=== PATIENT | male | born 1970 | race Caucasian/White ===

== ENCOUNTER 2016-05-15 14:52 | Inpatient (IN) | payer OTHER ==
[2016-05-15] MEDS ORDERED: Albuterol/Ipratropium NEB.SOL* Albuterol 2.5 MG/Ipratropium 0.5 MG 3 ML INH ONE (15:33)
[2016-05-15 15:40] LABS: Hematocrit 40 % (42-52); Hemoglobin 12.5 g/dl (14.0-18.0); Mean Corpuscular HGB Conc 31 g/dl (31-36); Mean Corpuscular Hemoglobin 30 pg (27-31); Mean Corpuscular Volume 94 fL (80-94); Mean Platelet Volume 7 um3 (7.4-10.4); Red Blood Count 4.22 10^6/ul (4.0-5.4); Red Cell Distribution Width 22 % (10.5-15); White Blood Count 11.2 10^3/ul (3.5-10.8)
[2016-05-15 15:45] LABS: Add Diff/Slide Review? Slide Review Added; Comments Flag Yes
[2016-05-15 15:58] LABS: ALT 36 U/L (7-52); AST 77 U/L (13-39); Albumin 2.9 g/dL (3.2-5.2); Alkaline Phosphatase 306 U/L (34-104); Anion Gap 7 mmol/L (2-11); BUN/Creatinine Ratio 7.5 (8-20); Blood Urea Nitrogen 3 mg/dL (6-24); C Reactive Protein 16.13 mg/L (< 5.00); CO2 Carbon Dioxide 28 mmol/L (22-32); Calcium 8.6 mg/dL (8.6-10.3); Chloride 95 mmol/L (101-111); Creatine Kinase 69 U/L (10-223); EGFR African American 295.3 (>60); EGFR Non-African American 229.6 (>60); Globulin 3.6 g/dL (2-4); Glucose 99 mg/dL (70-100); Lipase 25 U/L (11.0-82.0); Potassium 4.6 mmol/L (3.5-5.0); Sodium 130 mmol/L (133-145); Total Protein 6.5 g/dL (6.4-8.9)
[2016-05-15 16:01] LABS: Troponin I 0.45 ng/mL (<0.04)
--- NOTE | 2016-05-15 16:03 | RAD ---
HISTORY: Shortness of breath, hypoxia COMPARISONS: February 24, 2016 VIEWS:1: Single frontal portable view of the chest at 3:56 PM FINDINGS: LINES AND TUBES: None. CARDIOMEDIASTINAL SILHOUETTE: The cardiomediastinal silhouette is normal for portable technique. PLEURA: The costophrenic angles are sharp. No pleural abnormalities are noted. LUNG PARENCHYMA: There is patchy alveolar opacification of the infrahilar right lung ABDOMEN: The upper abdomen is clear. There is no subphrenic gas. BONES AND SOFT TISSUES: No bone or soft tissue abnormalities are noted. IMPRESSION: PATCHY CONSOLIDATION OF THE INFRAHILAR RIGHT LUNG. RECOMMEND FOLLOW-UP UNTIL RESOLUTION TO EXCLUDE UNDERLYING PULMONARY PARENCHYMAL PATHOLOGY.
[2016-05-15] MEDS ORDERED: Furosemide IV* 10 MG/ML VIAL (40 MG) IV ONE (16:08)
[2016-05-15] MEDS ORDERED: Aspirin Low Dose CHEW TAB* 81 MG PO ONE (16:08)
[2016-05-15 16:24] LABS: TSH (Thyroid Stimulating Horm) 2.06 mcIU/mL (0.34-5.60)
[2016-05-15 17:02] LABS: Urine Bilirubin Negative (Negative); Urine Glucose Negative (Negative); Urine Nitrite Negative (Negative)
--- NOTE | 2016-05-15 17:11 | ED ---
Chester Yung Janilya, scribed for Faustino Perla MD on 05/15/16 at 1523 . Lower Extremity - HPI Summary HPI Summary: A 46 y/o male came in to [facility] presenting w/ a gradual onset of constant LE pain and edema for about a month. However, the pain has worsened recently. In addition, pt reports SOB, tachycardia. Pt denies fever, chills, CP. No PMHx of CHF, DM, MRSA. PMHx peripheral vascular disease. SHx heavy tobacco and EtOH user. - History of Current Complaint Chief Complaint: EDExtremityLower Stated Complaint: BOTH LEGS AND FEET SWOLLEN Time Seen by Provider: 05/15/16 15:08 Hx Obtained From: Patient Onset/Duration: Still Present Severity Initially: Moderate Severity Currently: Moderate Pain Intensity: 8 Pain Scale Used: 0-10 Numeric Timing: Constant, Lasting Weeks Location: Is Diffuse Character Of Pain: Dull, Aching Associated Signs And Symptoms: Positive: Swelling, Redness. Negative: Fever Aggravating Factor(s): Nothing Alleviating Factor(s): Nothing - Allergies/Home Medications Allergies/Adverse Reactions: Allergies Allergy/AdvReac Type Severity Reaction Status Date / Time Latex Allergy Unknown Verified 02/25/16 12:45 Reaction Details Home Medications: Home Medications Aspirin EC Low Dose* [Ecotrin EC Low Dose*] 81 mg PO DAILY 05/15/16 [History Confirmed 05/15/16] Atorvastatin* [Lipitor*] 80 mg PO DAILY 05/15/16 [History Confirmed 05/15/16] PMH/Surg Hx/FS Hx/Imm Hx Cardiovascular History: Reports: Hx Coronary Artery Disease, Hx Hypertension, Other Cardiovascular Problems/Disorders - Peripheral artery disease, cardiomyopathy (s/t HTN), aortic root dialation Denies: Hx Pacemaker/ICD Respiratory History: Reports: Hx Chronic Obstructive Pulmonary Disease (COPD), Other Respiratory Problems/Disorders - centrilobular emphysema Sensory History: Denies: Hx Hearing Aid Psychiatric History: Reports: Hx Substance Abuse Denies: Hx Panic Disorder Comment Only: Other Psychiatric Issues/Disorders - pt denies - Surgical History Surgery Procedure, Year, and Place: TONSILECTOMY. APPENDECTOMY Infectious Disease History: No Infectious Disease History: Denies: Hx of Known/Suspected MRSA, History Other Infectious Disease, Traveled Outside the [place] in Last 30 Days - Family History Known Family History: Positive: Unknown - pt is too confused to answer this question, Cardiac Disease - [place] - grandfather, Diabetes - Social History Alcohol Use: Daily Alcohol Amount: 8 beers day Substance Use Type: Reports: None Substance Use Comment - Amount & Last Used: 6 to 8 beers daily Smoking Status (MU): Heavy Every Day Tobacco Smoker Type: Cigarettes Amount Used/How Often: 1 ppd Review of Systems Negative: Fever, Chills Positive: Other - tachycardia . Negative: Chest Pain Positive: Shortness Of Breath Positive: Arthralgia - LE pain , Myalgia - LE pain, Edema All Other Systems Reviewed And Are Negative: Yes Physical Exam Triage Information Reviewed: Yes Vital Signs On Initial Exam: Initial Vitals Temp Pulse Resp BP Pulse Ox 98.2 F 128 20 111/74 85 05/15/16 14:55 05/15/16 14:55 05/15/16 14:55 05/15/16 14:55 05/15/16 14:55 Vital Signs Reviewed: Yes Appearance: Positive: Well-Appearing, No Pain Distress Skin: Positive: Warm, Skin Color Reflects Adequate Perfusion, Dry Head/Face: Positive: Normal Head/Face Inspection Eyes: Positive: EOMI, KELTON, Other: - Conjuctival exudates bilaterally ENT: Positive: Normal ENT inspection Neck: Positive: Supple, Nontender Respiratory/Lung Sounds: Positive: Breath Sounds Present, Rhonchi - bilaterally Cardiovascular: Positive: RRR Abdomen Description: Positive: Nontender, Soft Bowel Sounds: Positive: Present Musculoskeletal: Positive: Strength/ROM Intact, Edema Left, Edema Right Neurological: Positive: Normal, Sensory/Motor Intact, Alert, Oriented to Person Place, Time Psychiatric: Positive: Affect/Mood Appropriate Diagnostics - Vital Signs Vital Signs Temp Pulse Resp BP Pulse Ox 05/15/16 14:55 98.2 F 128 20 111/74 85 - Laboratory Lab Results: Lab Results 05/15/16 05/15/16 05/15/16 Range/Units 15:27 15:27 15:27 WBC 11.2 H (3.5-10.8) 10^3/ul RBC 4.22 (4.0-5.4) 10^6/ul Hgb 12.5 L (14.0-18.0) g/dl Hct 40 L (42-52) % MCV 94 (80-94) fL MCH 30 (27-31) pg MCHC 31 (31-36) g/dl RDW 22 H (10.5-15) % Plt Count 240 (150-450) 10^3/ul MPV 7 L (7.4-10.4) um3 Neut % (Auto) 85.8 H (38-83) % Lymph % (Auto) 5.5 L (25-47) % [place] % (Auto) 8.5 (1-9) % Eos % (Auto) 0 (0-6) % Baso % (Auto) 0.2 (0-2) % Absolute Neuts (auto) 9.6 H (1.5-7.7) 10^3/ul Absolute Lymphs (auto) 0.6 L (1.0-4.8) 10^3/ul Absolute Monos (auto) 1.0 H (0-0.8) 10^3/ul Absolute Eos (auto) 0 (0-0.6) 10^3/ul Absolute Basos (auto) 0 (0-0.2) 10^3/ul Absolute Nucleated RBC 0.18 10^3/ul Nucleated RBC % 1.6 INR (Anticoag Therapy) 1.06 (0.89-1.11) APTT 30.7 (26.0-36.3) seconds D-Dimer, Quantitative 301 H (Less Than 230) ng/mL Sodium 130 L (133-145) mmol/L Potassium 4.6 (3.5-5.0) mmol/L Chloride 95 L (101-111) mmol/L Carbon Dioxide 28 (22-32) mmol/L Anion Gap 7 (2-11) mmol/L BUN 3 L (6-24) mg/dL Creatinine 0.40 L (0.67-1.17) mg/dL Est GFR ( Amer) 295.3 (>60) Est GFR (Non-Af Amer) 229.6 (>60) BUN/Creatinine Ratio 7.5 L (8-20) Glucose 99 (70-100) mg/dL Lactic Acid (0.5-2.0) mmol/L Calcium 8.6 (8.6-10.3) mg/dL Magnesium 2.0 (1.9-2.7) mg/dL Total Bilirubin 2.00 H (0.2-1.0) mg/dL AST 77 H (13-39) U/L ALT 36 (7-52) U/L Alkaline Phosphatase 306 H (34-104) U/L Total Creatine Kinase 69 (10-223) U/L CK-MB (CK-2) 5.4 (0.6-6.3) ng/mL Troponin I 0.45 H* (<0.04) ng/mL C-Reactive Protein 16.13 H (< 5.00) mg/L B-Natriuretic Peptide ( - 100) pg/mL Total Protein 6.5 (6.4-8.9) g/dL Albumin 2.9 L (3.2-5.2) g/dL Globulin 3.6 (2-4) g/dL Albumin/Globulin Ratio 0.8 L (1-3) Lipase 25 (11.0-82.0) U/L TSH 2.06 (0.34-5.60) mcIU/mL Urine Color Urine Appearance Urine pH (5-9) Ur Specific [place] (1.010-1.030) Urine Protein (Negative) Urine Ketones (Negative) Urine Blood (Negative) Urine Nitrate (Negative) Urine Bilirubin (Negative) Urine Urobilinogen (Negative) Ur Leukocyte Esterase (Negative) Urine Glucose (Negative) Influenza A (Rapid) (Negative) Influenza B (Rapid) (Negative) 05/15/16 05/15/16 05/15/16 Range/Units 15:27 15:27 16:35 WBC (3.5-10.8) 10^3/ul RBC (4.0-5.4) 10^6/ul Hgb (14.0-18.0) g/dl Hct (42-52) % MCV (80-94) fL MCH (27-31) pg MCHC (31-36) g/dl RDW (10.5-15) % Plt Count (150-450) 10^3/ul MPV (7.4-10.4) um3 Neut % (Auto) (38-83) % Lymph % (Auto) (25-47) % [place] % (Auto) (1-9) % Eos % (Auto) (0-6) % Baso % (Auto) (0-2) % Absolute Neuts (auto) (1.5-7.7) 10^3/ul Absolute Lymphs (auto) (1.0-4.8) 10^3/ul Absolute Monos (auto) (0-0.8) 10^3/ul Absolute Eos (auto) (0-0.6) 10^3/ul Absolute Basos (auto) (0-0.2) 10^3/ul Absolute Nucleated RBC 10^3/ul Nucleated RBC % INR (Anticoag Therapy) (0.89-1.11) APTT (26.0-36.3) seconds D-Dimer, Quantitative (Less Than 230) ng/mL Sodium (133-145) mmol/L Potassium (3.5-5.0) mmol/L Chloride (101-111) mmol/L Carbon Dioxide (22-32) mmol/L Anion Gap (2-11) mmol/L BUN (6-24) mg/dL Creatinine (0.67-1.17) mg/dL Est GFR ( Amer) (>60) Est GFR (Non-Af Amer) (>60) BUN/Creatinine Ratio (8-20) Glucose (70-100) mg/dL Lactic Acid 1.8 (0.5-2.0) mmol/L Calcium (8.6-10.3) mg/dL Magnesium (1.9-2.7) mg/dL Total Bilirubin (0.2-1.0) mg/dL AST (13-39) U/L ALT (7-52) U/L Alkaline Phosphatase (34-104) U/L Total Creatine Kinase (10-223) U/L CK-MB (CK-2) (0.6-6.3) ng/mL Troponin I (<0.04) ng/mL C-Reactive Protein (< 5.00) mg/L B-Natriuretic Peptide 1306 H ( - 100) pg/mL Total Protein (6.4-8.9) g/dL Albumin (3.2-5.2) g/dL Globulin (2-4) g/dL Albumin/Globulin Ratio (1-3) Lipase (11.0-82.0) U/L TSH (0.34-5.60) mcIU/mL Urine Color Urine Appearance Urine pH (5-9) Ur Specific [place] (1.010-1.030) Urine Protein (Negative) Urine Ketones (Negative) Urine Blood (Negative) Urine Nitrate (Negative) Urine Bilirubin (Negative) Urine Urobilinogen (Negative) Ur Leukocyte Esterase (Negative) Urine Glucose (Negative) Influenza A (Rapid) Negative (Negative) Influenza B (Rapid) Negative (Negative) 05/15/16 Range/Units 16:49 WBC (3.5-10.8) 10^3/ul RBC (4.0-5.4) 10^6/ul Hgb (14.0-18.0) g/dl Hct (42-52) % MCV (80-94) fL MCH (27-31) pg MCHC (31-36) g/dl RDW (10.5-15) % Plt Count (150-450) 10^3/ul MPV (7.4-10.4) um3 Neut % (Auto) (38-83) % Lymph % (Auto) (25-47) % [place] % (Auto) (1-9) % Eos % (Auto) (0-6) % Baso % (Auto) (0-2) % Absolute Neuts (auto) (1.5-7.7) 10^3/ul Absolute Lymphs (auto) (1.0-4.8) 10^3/ul Absolute Monos (auto) (0-0.8) 10^3/ul Absolute Eos (auto) (0-0.6) 10^3/ul Absolute Basos (auto) (0-0.2) 10^3/ul Absolute Nucleated RBC 10^3/ul Nucleated RBC % INR (Anticoag Therapy) (0.89-1.11) APTT (26.0-36.3) seconds D-Dimer, Quantitative (Less Than 230) ng/mL Sodium (133-145) mmol/L Potassium (3.5-5.0) mmol/L Chloride (101-111) mmol/L Carbon Dioxide (22-32) mmol/L Anion Gap (2-11) mmol/L BUN (6-24) mg/dL Creatinine (0.67-1.17) mg/dL Est GFR ( Amer) (>60) Est GFR (Non-Af Amer) (>60) BUN/Creatinine Ratio (8-20) Glucose (70-100) mg/dL Lactic Acid (0.5-2.0) mmol/L Calcium (8.6-10.3) mg/dL Magnesium (1.9-2.7) mg/dL Total Bilirubin (0.2-1.0) mg/dL AST (13-39) U/L ALT (7-52) U/L Alkaline Phosphatase (34-104) U/L Total Creatine Kinase (10-223) U/L CK-MB (CK-2) (0.6-6.3) ng/mL Troponin I (<0.04) ng/mL C-Reactive Protein (< 5.00) mg/L B-Natriuretic Peptide ( - 100) pg/mL Total Protein (6.4-8.9) g/dL Albumin (3.2-5.2) g/dL Globulin (2-4) g/dL Albumin/Globulin Ratio (1-3) Lipase (11.0-82.0) U/L TSH (0.34-5.60) mcIU/mL Urine Color Straw Urine Appearance Clear Urine pH 5.0 (5-9) Ur Specific [place] 1.003 L (1.010-1.030) Urine Protein Negative (Negative) Urine Ketones Negative (Negative) Urine Blood Negative (Negative) Urine Nitrate Negative (Negative) Urine Bilirubin Negative (Negative) Urine Urobilinogen Negative (Negative) Ur Leukocyte Esterase Negative (Negative) Urine Glucose Negative (Negative) Influenza A (Rapid) (Negative) Influenza B (Rapid) (Negative) Result Diagrams: 05/15/16 15:27 05/15/16 15:27 Lab Statement: Any lab studies that have been ordered have been reviewed, and results considered in the medical decision making process. - Radiology CXR Xray Interpretation: Positive (See Comments) - IMPRESSION: PATCHY CONSOLIDATION OF THE INFRAHILAR RIGHT LUNG. RECOMMEND FOLLOW-UP UNTIL RESOLUTION TO EXCLUDE UNDERLYING PULMONARY PARENCHYMAL PATHOLOGY. Radiology Interpretation Completed By: Radiologist - EKG 1506 Cardiac Rate: Tachycardia EKG Rhythm: Sinus Tachycardia Ectopy: None EKG Interpretation: RBBB, left atrial enlargement Lower Extremity Course/Dx - Course Assessment/Plan: GIVEN ASA AND LASIX IN ED. ADMIT HOSPITALIST STABLE. - Diagnoses Provider Diagnoses: Hypoxia, CHF (congestive heart failure) - Physician Notifications Discussed Care of Patient With: Dr. Amato (hospitalist) at 1635: agrees to admit pt. Discharge - Discharge Plan Condition: Stable Disposition: ADMITTED TO [facility] Referrals: Ritesh Tsai MD [Primary Care Provider] - The documentation as recorded by the Chester palomo Janilya accurately reflects the service I personally performed and the decisions made by me, Faustino Perla MD.
[2016-05-15] MEDS ORDERED: Ondansetron INJ* 2 MG/ML VIAL IV PRN (17:20)
[2016-05-15] MEDS ORDERED: Thiamine IV* 100 MG/ML 2 ML VIAL IM ONE (17:50)
[2016-05-15] MEDS ORDERED: Enoxaparin(*) 40 MG/0.4 ML SYR SUBCUT SCH (18:00)
[2016-05-15] MEDS: LORazepam TAB(*) 1 MG PO SCH ×2 (18:11→23:09)
[2016-05-15] MEDS ORDERED: Iohexol 350* (CONTRAST) 500 ML MDV IV ONE (18:13)
[2016-05-15 18:16] LABS: Alcohol < 10 mg/dL (<10)
[2016-05-15] MEDS: Lisinopril TAB* 5 MG PO SCH (18:16)
--- NOTE | 2016-05-15 18:53 | RAD ---
INDICATION: Chest pain. Short of breath. Evaluate for pulmonary embolus. COMPARISON: Chest x-ray 05/15/2016 TECHNIQUE: Axial source images were obtained from the thoracic inlet to the hemidiaphragms following administration of [address] angiographic technique was utilized. Coronal and sagittal reconstructed images were acquired. CHEST FINDINGS: Neck/thyroid: The visualized neck to include the thyroid appear normal. Chest wall: There are no acute abnormalities of the bony thorax or chest wall. There is no supraclavicular, infraclavicular, or axillary lymphadenopathy. Lungs : There are no pulmonary parenchymal masses or infiltrates. There is mild coarsening of interstitium. There are no endobronchial lesions. Cardiomediastinal structures: There is no CT evidence of acute pulmonary embolic disease. The heart is normal in size. There is no pericardial effusion. There is no evidence of aortic aneurysm or dissection. There is no mediastinal or hilar adenopathy. The esophagus appears normal. Pleura : There are no pleural-based masses or effusions. Other: None. IMPRESSION: NO CT EVIDENCE OF ACUTE PULMONARY EMBOLIC DISEASE
--- NOTE | 2016-05-15 19:18 | HP ---
ADMISSION HISTORY AND PHYSICAL: DATE OF ADMISSION: 05/15/16 PRIMARY CARE PROVIDER: Dr. Tsai. ADMITTING PROVIDER: NICOLE Holt. SUPERVISING PHYSICIAN: Evie Amato DO.* (DICTATED BY NICOLE HOLT) CHIEF COMPLAINT: Lower extremity edema, erythema, and pain. HISTORY OF PRESENT ILLNESS: This is a 46-year-old gentleman with a known cardiomyopathy, last ejection fraction measured at 35% to 40% likely due to alcoholism as well as hypertension, prior CVA, and severe peripheral vascular disease who presented with a chief complaint of bilateral lower extremity edema , erythema, and pain. Symptoms started several weeks ago and had been slowly increasing. His mother finally talked him into coming to the emergency department for evaluation. The patient denies associated chest pain or shortness of breath. He has not been ill. Denies any nausea or vomiting, but does have some occasional diarrhea which he attributes to his regular alcohol consumption. The patient was admitted in February for altered mental status. This was thought to possibly represent a TIA. An old CVA was discovered at that time, but no new infarct. The patient's cardiomyopathy was also noted at that time. Again, his ejection fraction was noted to be 35% to 40% with a global hypokinesis which would be more consistent with an alcoholic cardiomyopathy. The patient was prescribed appropriate medications including lisinopril, aspirin , a statin as well as thiamine and folic acid which the patient has been completely noncompliant with. It sounds like maybe he followed up with his primary care provider after his hospital stay, but he has not followed through on continuing any of his prescribed medications with the exception of a daily aspirin. The patient's mother states that he has also been more confused over the last several days. His appetite has also been poor. No other acute findings. No recent illness or fever. When the patient reached the emergency department, he was noted to be hypoxic with oxygen saturations in the mid 80s as well as tachycardic with a heart rate of 125 beats per minute. The patient was placed on high flow oxygen, given 40 mg of IV Lasix, aspirin, and a DuoNeb. He remains on high flow oxygen at this time, but is satting near 100%. PAST MEDICAL HISTORY: 1. Chronic alcoholism without history of seizure. 2. Hypertension. 3. CVA. 4. Cardiomyopathy likely alcohol induced with an ejection fraction of 35% to 40 %. 5. Peripheral vascular disease. PAST SURGICAL HISTORY: 1. Tonsillectomy. 2. Appendectomy. HOME MEDICATIONS: Aspirin 81 mg daily. SOCIAL HISTORY: The patient lives at home with his mother. He is a heavy beer drinker, consumes 8 to 12 beers per day and smokes 1 pack of cigarettes daily with a [id number] smoking history. The patient is unemployed and receives social security income for disability. REVIEW OF SYSTEMS: As noted above in HPI, otherwise negative. PHYSICAL EXAMINATION GENERAL: This is a 46-year-old gentleman who appears much older than stated age and participates in a limited fashion in his history. He is accompanied by his mother that helps to clarify. He is in no acute distress with oxygen mask on. VITAL SIGNS: Initial temperature of 98.2 degrees Fahrenheit, pulse 128 beats per minute, respiratory rate 20 per minute, oxygen saturation 85% on room air, and blood pressure 111/74 mmHg. Most recent vitals show improvement of pulse to 116 beats per minute, blood pressure is 104/61 mmHg. HEENT: Head is normocephalic, atraumatic. Mucous membranes pink and moist. NECK: Supple, free of lymphadenopathy without JVD appreciated. RESPIRATORY: The patient has diffuse rhonchi noted. No crackles or wheezes. CARDIOVASCULAR: Heart has a regular rate and rhythm without murmurs, rubs, or gallops. ABDOMEN: Soft and nontender to palpation. Mildly protuberant. EXTREMITIES: The patient has 3+ lower extremity pitting edema with some mild erythema accompanying. No drainage noted. PSYCH: The patient is alert and appropriately oriented. NEURO: The patient is noted to be mildly tremulous with activity. LABORATORY EVALUATION: CBC shows a white blood cell count of 11,200, hemoglobin 12.5 g/dL, and platelet count of 240,000. INR is normal at 1.06. PTT is also normal at 30. D-dimer is mildly elevated at 301, however. Comprehensive metabolic panel is significant for sodium of 130 mmol/L, potassium normal at 4.6 mmol/L, BUN of 3, creatinine 0.4, and estimated GFR of 229. Magnesium normal at 2.0. Normal lactic acid, 1.8. Total bilirubin elevated at 2.0 with an elevated AST at 77, ALT normal at 36, and alk phos elevated at 306. Troponin elevated at 0.45. CRP mildly elevated at 16.3. BNP significantly elevated at 1306. TSH normal at 2.06. Urinalysis is unremarkable. Influenza screening is negative. IMAGING: EKG shows right bundle branch block which appears to be new when compared to prior at a rate of about 135 beats per minute, underlying rhythm is sinus. Chest x-ray shows mild pulmonary venous congestion and what is described as a patchy right hilar consolidation. ASSESSMENT AND PLAN: This is a 46-year-old alcoholic with an alcohol-induced cardiomyopathy, peripheral vascular disease, prior cerebrovascular accident, and hypertension who presents to the emergency department with insidious onset of lower extremity edema, erythema, and pain. The patient is noted to have an elevated troponin and BNP. He is being admitted to the hospital for heart failure. 1. Acute exacerbation of chronic systolic heart failure secondary to alcohol- induced cardiomyopathy - the patient received IV Lasix in the emergency department. He will continue with daily IV Lasix with strict I's and O's, low- salt diet, and daily weights. Plan to repeat echocardiogram. Also consider possibility of a PE due to his hypoxia, tachycardia, and profound lower extremity edema without significant pulmonary edema in addition to his D-dimer. A CTA is pending at this time. 2. Elevated troponin - likely demand induced secondary to his heart failure exacerbation. Again, consider possibility of a pulmonary embolism. Acute coronary syndrome is unlikely without ischemic changes on EKG or chest pain. We will trend troponin; however, we will not anticoagulate at this time, but restart his low-dose EZ inhibitor. Continue aspirin and restart his statin. 3. Confusion - the patient's mother notes that he has been more confused and lethargic lately. Consider the possibility of hepatic encephalopathy. We will check an ammonia level. 4. Alcoholism - the patient shows signs of mild alcohol withdrawal and states that his last drink was approximately 24 hours ago. We will initiate a WA protocol. No history of seizures with prior withdrawal. 5. History of elevated hemoglobin A1c: Hemoglobin A1c during last admission was 6.2%. His random glucose on admission was 99. We will plan to repeat hemoglobin A1c and if elevated, we will initiate glucose monitoring during his hospital stay. 6. Hypertension - reinitiate lisinopril. 7. Peripheral vascular disease - continue statin and aspirin. 8. History of cerebrovascular accident - continue statin and aspirin. 9. Code status - the patient is full code. 10. Healthcare proxy is his mother. 11. DVT prophylaxis - the patient is a moderate to high risk for DVT and will be initiated on 40 mg of subcu Lovenox daily. DISPOSITION: The patient is being admitted to the hospital with an anticipated length of stay of greater than 2 days with a diagnosis of heart failure exacerbation. NICOLE HOLT CC: Dr. Tsai * [id number]/CPS #: [id number] MTDD
[2016-05-15] MEDS ORDERED: Heparin DRIP 25,000 UNITS(*) 25,000 UNITS/500 ML BAG IV SCH (22:15)
[2016-05-15] MEDS ORDERED: Heparin VIAL(*) 5000 UNITS/ML VIAL (FIVE THOUSAND) IV SCH (23:00)
[2016-05-16] MEDS: LORazepam TAB(*) 1 MG PO SCH ×4 (01:18→10:09)
[2016-05-16 06:30] LABS: Hematocrit 38 % (42-52); Hemoglobin 11.6 g/dl (14.0-18.0); Mean Corpuscular HGB Conc 31 g/dl (31-36); Mean Corpuscular Hemoglobin 29 pg (27-31); Mean Corpuscular Volume 95 fL (80-94); Mean Platelet Volume 8 um3 (7.4-10.4); Red Blood Count 3.97 10^6/ul (4.0-5.4); Red Cell Distribution Width 23 % (10.5-15); White Blood Count 10.9 10^3/ul (3.5-10.8)
[2016-05-16 06:31] LABS: Comments Flag Yes
[2016-05-16 06:36] LABS: Ammonia 75 mol/L (16-53)
[2016-05-16 06:37] LABS: Albumin 2.5 g/dL (3.2-5.2); BUN/Creatinine Ratio 9.3 (8-20); Calcium 8.3 mg/dL (8.6-10.3); EGFR African American 271.6 (>60); EGFR Non-African American 211.2 (>60); Globulin 3.2 g/dL (2-4); HDL Cholesterol 23.8 mg/dL; Potassium 3.3 mmol/L (3.5-5.0); Total Bilirubin 1.8 mg/dL (0.2-1.0); Total Protein 5.7 g/dL (6.4-8.9)
[2016-05-16 06:40] LABS: Troponin I 0.68 ng/mL (<0.04)
[2016-05-16 06:42] LABS: B Type Natriuretic Peptide 2207 pg/mL
[2016-05-16] MEDS ORDERED: Furosemide IV* 10 MG/ML VIAL (40 MG) IV SLOW PU ONE (06:42)
--- NOTE | 2016-05-16 08:06 | RAD ---
INDICATION: Shortness of breath. COMPARISON: Chest x-ray dated 05/15/2016 TECHNIQUE: Single AP portable view of the chest was obtained. FINDINGS: Image quality is compromised due to the relative inferiority of a portable chest x-ray. Similar the previous chest x-ray there is moderate cardiomegaly. There is fullness symmetrically of the bilateral yolanda with densities overlying the central lungs. More peripherally the lungs are adequately clear. There is bibasilar costophrenic angle blunting. Visualized bones are normal for the patient's age. IMPRESSION: Chest x-ray findings are most compatible with cardiogenic pulmonary edema slightly progressed when compared to the previous day's chest x-ray.
[2016-05-16] MEDS ORDERED: Thiamine TAB* 100 MG TAB PO SCH (09:00)
--- NOTE | 2016-05-16 09:23 | PN ---
Subjective Date of Service: 05/16/16 Interval History: 1100: patient examined at the bedside - per nursing staff he is much more awake now as he was very lethargic. He is answering some questions but not others - some noted confusion. follows commands. Reports he drinks 8-12 beers a day. Denies any tremors, hallucination. No hx of seizure in the past. He reports he feels better than on admission with less swelling. Denies chest pain or sob. no recent fever or chills. Denies abdominal pain, N/V/D. 1300: Patient re-evaluated at the bedside with Dr. Gamboa and decision was made to transfer to ICU due to lethargy and increasing oxygen requirements. Pts is hemodynamically stable, awake to voice but appears confused. Plan to obtain ABG. Objective Active Medications: Acetaminophen (Tylenol Tab*) 650 mg PO Q4H PRN PRN Reason: FEVER/PAIN Aspirin (Aspirin Ec Low Dose*) 81 mg PO DAILY PRATIMA Atorvastatin Calcium (Lipitor*) 40 mg PO 1700 PRATIMA Folic Acid (Folvite Tab*) 1 mg PO DAILY PRATIMA Furosemide (Lasix Iv*) 40 mg IV DAILY PRATIMA Heparin Sodium (Porcine) (Heparin Vial(*)) 0 units IV .PER PROTOCOL PRATIMA PRN Reason: Protocol Heparin Sodium/Dextrose (Heparin Drip 25,000 Units(*)) 25,000 units in 500 mls @ 0 mls/hr IV .NO INITIAL BOLUS PRATIMA; As Directed PRN Reason: Protocol Last Admin: 05/16/16 00:05 Dose: 22 mls/hr Lisinopril (Prinivil Tab*) 5 mg PO DAILY PRATIMA Last Admin: 05/15/16 18:16 Dose: Not Given Lorazepam (Ativan Tab(*)) 0 mg PO .PER WAM SCORE PRATIMA PRN Reason: Protocol Last Admin: 05/16/16 05:48 Dose: 1 mg Multivitamins/Minerals (Theragran/Minerals Tab*) 1 tab PO DAILY PRATIMA Ondansetron HCl (Zofran Inj*) 4 mg IV Q4H PRN PRN Reason: NAUSEA/VOMITING Thiamine HCl (Vitamin B-1 Tab*) 100 mg PO DAILY PRATIMA Vital Signs 05/15/16 05/15/16 05/15/16 17:30 17:50 18:00 Temperature Pulse Rate 119 116 Respiratory 17 19 Rate Blood Pressure 108/55 104/61 (mmHg) O2 Sat by Pulse 96 99 Oximetry 05/15/16 05/15/16 05/15/16 18:11 18:21 19:40 Temperature 98.6 F Pulse Rate 129 129 Respiratory 17 17 18 Rate Blood Pressure 104/61 129/92 (mmHg) O2 Sat by Pulse 95 Oximetry 05/15/16 05/15/16 05/15/16 19:44 20:00 20:11 Temperature Pulse Rate Respiratory 18 16 18 Rate Blood Pressure (mmHg) O2 Sat by Pulse Oximetry 05/15/16 05/15/16 05/15/16 21:44 23:09 23:35 Temperature 100.6 F 98.2 F Pulse Rate 120 122 Respiratory 19 16 20 Rate Blood Pressure 121/60 123/71 (mmHg) O2 Sat by Pulse 95 95 Oximetry 05/16/16 05/16/16 05/16/16 01:09 01:18 02:02 Temperature Pulse Rate 114 Respiratory 18 18 16 Rate Blood Pressure 109/71 (mmHg) O2 Sat by Pulse 93 Oximetry 05/16/16 05/16/16 05/16/16 03:18 03:20 03:38 Temperature 99.4 F Pulse Rate 125 Respiratory 16 16 20 Rate Blood Pressure 110/64 (mmHg) O2 Sat by Pulse 86 Oximetry 05/16/16 05/16/16 05/16/16 03:50 05:20 05:40 Temperature Pulse Rate 123 Respiratory 18 20 Rate Blood Pressure 112/68 (mmHg) O2 Sat by Pulse 91 98 Oximetry 05/16/16 05:48 Temperature Pulse Rate Respiratory 18 Rate Blood Pressure (mmHg) O2 Sat by Pulse Oximetry Oxygen Devices in Use Now: Nasal Cannula - 8L NC Appearance: appears encepalopathic, appears to have muscle wasting - alert to self - thinks he is at [facility]. Eyes: No Scleral Icterus, PERRLA Ears/Nose/Mouth/Throat: NL Teeth, Lips, Gums, Mucous Membranes Moist Neck: NL Appearance and Movements; NL JVP, Trachea Midline Respiratory: Symmetrical Chest Expansion and Respiratory Effort, - - diminished bilaterally Cardiovascular: NL Sounds; No Murmurs; No JVD, RRR, - - trace LE edema b/l Abdominal: NL Sounds; No Tenderness; No Distention Lymphatic: No Cervical Adenopathy Extremities: No Clubbing, Cyanosis Skin: No Rash or Ulcers Neurological: - - alert to self, confused. 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 Lines/Tubes/Other Access: Clean, Dry and Intact Peripheral IV Nutrition: Taking PO's Result Diagrams: 05/16/16 06:07 05/16/16 06:07 Additional Lab and Data: Lab Results 05/15/16 05/15/16 05/15/16 Range/Units 15:27 15:27 15:27 WBC 11.2 H (3.5-10.8) 10^3/ul RBC 4.22 (4.0-5.4) 10^6/ul Hgb 12.5 L (14.0-18.0) g/dl Hct 40 L (42-52) % MCV 94 (80-94) fL MCH 30 (27-31) pg MCHC 31 (31-36) g/dl RDW 22 H (10.5-15) % Plt Count 240 (150-450) 10^3/ul MPV 7 L (7.4-10.4) um3 Neut % (Auto) 85.8 H (38-83) % Lymph % (Auto) 5.5 L (25-47) % Travis % (Auto) 8.5 (1-9) % Eos % (Auto) 0 (0-6) % Baso % (Auto) 0.2 (0-2) % Absolute Neuts (auto) 9.6 H (1.5-7.7) 10^3/ul Absolute Lymphs (auto) 0.6 L (1.0-4.8) 10^3/ul Absolute Monos (auto) 1.0 H (0-0.8) 10^3/ul Absolute Eos (auto) 0 (0-0.6) 10^3/ul Absolute Basos (auto) 0 (0-0.2) 10^3/ul Absolute Nucleated RBC 0.18 10^3/ul Nucleated RBC % 1.6 INR (Anticoag Therapy) 1.06 (0.89-1.11) APTT 30.7 (26.0-36.3) seconds D-Dimer, Quantitative 301 H (Less Than 230) ng/mL Sodium 130 L (133-145) mmol/L Potassium 4.6 (3.5-5.0) mmol/L Chloride 95 L (101-111) mmol/L Carbon Dioxide 28 (22-32) mmol/L Anion Gap 7 (2-11) mmol/L BUN 3 L (6-24) mg/dL Creatinine 0.40 L (0.67-1.17) mg/dL Est GFR ( Amer) 295.3 (>60) Est GFR (Non-Af Amer) 229.6 (>60) BUN/Creatinine Ratio 7.5 L (8-20) Glucose 99 (70-100) mg/dL Lactic Acid (0.5-2.0) mmol/L Calcium 8.6 (8.6-10.3) mg/dL Magnesium 2.0 (1.9-2.7) mg/dL Total Bilirubin 2.00 H (0.2-1.0) mg/dL AST 77 H (13-39) U/L ALT 36 (7-52) U/L Alkaline Phosphatase 306 H (34-104) U/L Total Creatine Kinase 69 (10-223) U/L CK-MB (CK-2) 5.4 (0.6-6.3) ng/mL Troponin I 0.45 H* (<0.04) ng/mL C-Reactive Protein 16.13 H (< 5.00) mg/L B-Natriuretic Peptide ( - 100) pg/mL Total Protein 6.5 (6.4-8.9) g/dL Albumin 2.9 L (3.2-5.2) g/dL Globulin 3.6 (2-4) g/dL Albumin/Globulin Ratio 0.8 L (1-3) Lipase 25 (11.0-82.0) U/L TSH 2.06 (0.34-5.60) mcIU/mL Urine Color Urine Appearance Urine pH (5-9) Ur Specific Meadow (1.010-1.030) Urine Protein (Negative) Urine Ketones (Negative) Urine Blood (Negative) Urine Nitrate (Negative) Urine Bilirubin (Negative) Urine Urobilinogen (Negative) Ur Leukocyte Esterase (Negative) Urine Glucose (Negative) Influenza A (Rapid) (Negative) Influenza B (Rapid) (Negative) 05/15/16 05/15/16 05/15/16 Range/Units 15:27 15:27 16:35 WBC (3.5-10.8) 10^3/ul RBC (4.0-5.4) 10^6/ul Hgb (14.0-18.0) g/dl Hct (42-52) % MCV (80-94) fL MCH (27-31) pg MCHC (31-36) g/dl RDW (10.5-15) % Plt Count (150-450) 10^3/ul MPV (7.4-10.4) um3 Neut % (Auto) (38-83) % Lymph % (Auto) (25-47) % Travis % (Auto) (1-9) % Eos % (Auto) (0-6) % Baso % (Auto) (0-2) % Absolute Neuts (auto) (1.5-7.7) 10^3/ul Absolute Lymphs (auto) (1.0-4.8) 10^3/ul Absolute Monos (auto) (0-0.8) 10^3/ul Absolute Eos (auto) (0-0.6) 10^3/ul Absolute Basos (auto) (0-0.2) 10^3/ul Absolute Nucleated RBC 10^3/ul Nucleated RBC % INR (Anticoag Therapy) (0.89-1.11) APTT (26.0-36.3) seconds D-Dimer, Quantitative (Less Than 230) ng/mL Sodium (133-145) mmol/L Potassium (3.5-5.0) mmol/L Chloride (101-111) mmol/L Carbon Dioxide (22-32) mmol/L Anion Gap (2-11) mmol/L BUN (6-24) mg/dL Creatinine (0.67-1.17) mg/dL Est GFR ( Amer) (>60) Est GFR (Non-Af Amer) (>60) BUN/Creatinine Ratio (8-20) Glucose (70-100) mg/dL Lactic Acid 1.8 (0.5-2.0) mmol/L Calcium (8.6-10.3) mg/dL Magnesium (1.9-2.7) mg/dL Total Bilirubin (0.2-1.0) mg/dL AST (13-39) U/L ALT (7-52) U/L Alkaline Phosphatase (34-104) U/L Total Creatine Kinase (10-223) U/L CK-MB (CK-2) (0.6-6.3) ng/mL Troponin I (<0.04) ng/mL C-Reactive Protein (< 5.00) mg/L B-Natriuretic Peptide 1306 H ( - 100) pg/mL Total Protein (6.4-8.9) g/dL Albumin (3.2-5.2) g/dL Globulin (2-4) g/dL Albumin/Globulin Ratio (1-3) Lipase (11.0-82.0) U/L TSH (0.34-5.60) mcIU/mL Urine Color Urine Appearance Urine pH (5-9) Ur Specific Meadow (1.010-1.030) Urine Protein (Negative) Urine Ketones (Negative) Urine Blood (Negative) Urine Nitrate (Negative) Urine Bilirubin (Negative) Urine Urobilinogen (Negative) Ur Leukocyte Esterase (Negative) Urine Glucose (Negative) Influenza A (Rapid) Negative (Negative) Influenza B (Rapid) Negative (Negative) 05/15/16 Range/Units 16:49 WBC (3.5-10.8) 10^3/ul RBC (4.0-5.4) 10^6/ul Hgb (14.0-18.0) g/dl Hct (42-52) % MCV (80-94) fL MCH (27-31) pg MCHC (31-36) g/dl RDW (10.5-15) % Plt Count (150-450) 10^3/ul MPV (7.4-10.4) um3 Neut % (Auto) (38-83) % Lymph % (Auto) (25-47) % Travis % (Auto) (1-9) % Eos % (Auto) (0-6) % Baso % (Auto) (0-2) % Absolute Neuts (auto) (1.5-7.7) 10^3/ul Absolute Lymphs (auto) (1.0-4.8) 10^3/ul Absolute Monos (auto) (0-0.8) 10^3/ul Absolute Eos (auto) (0-0.6) 10^3/ul Absolute Basos (auto) (0-0.2) 10^3/ul Absolute Nucleated RBC 10^3/ul Nucleated RBC % INR (Anticoag Therapy) (0.89-1.11) APTT (26.0-36.3) seconds D-Dimer, Quantitative (Less Than 230) ng/mL Sodium (133-145) mmol/L Potassium (3.5-5.0) mmol/L Chloride (101-111) mmol/L Carbon Dioxide (22-32) mmol/L Anion Gap (2-11) mmol/L BUN (6-24) mg/dL Creatinine (0.67-1.17) mg/dL Est GFR ( Amer) (>60) Est GFR (Non-Af Amer) (>60) BUN/Creatinine Ratio (8-20) Glucose (70-100) mg/dL Lactic Acid (0.5-2.0) mmol/L Calcium (8.6-10.3) mg/dL Magnesium (1.9-2.7) mg/dL Total Bilirubin (0.2-1.0) mg/dL AST (13-39) U/L ALT (7-52) U/L Alkaline Phosphatase (34-104) U/L Total Creatine Kinase (10-223) U/L CK-MB (CK-2) (0.6-6.3) ng/mL Troponin I (<0.04) ng/mL C-Reactive Protein (< 5.00) mg/L B-Natriuretic Peptide ( - 100) pg/mL Total Protein (6.4-8.9) g/dL Albumin (3.2-5.2) g/dL Globulin (2-4) g/dL Albumin/Globulin Ratio (1-3) Lipase (11.0-82.0) U/L TSH (0.34-5.60) mcIU/mL Urine Color Straw Urine Appearance Clear Urine pH 5.0 (5-9) Ur Specific Meadow 1.003 L (1.010-1.030) Urine Protein Negative (Negative) Urine Ketones Negative (Negative) Urine Blood Negative (Negative) Urine Nitrate Negative (Negative) Urine Bilirubin Negative (Negative) Urine Urobilinogen Negative (Negative) Ur Leukocyte Esterase Negative (Negative) Urine Glucose Negative (Negative) Influenza A (Rapid) (Negative) Influenza B (Rapid) (Negative) Assess/Plan/Problems-Billing Assessment: Mr. Gusman is a 46 yo male with a PMH of cardiomyopathy EF 35-40% likely due to ETOH abuse, HTN, hx CVA, severe PVD who presented on 05/15 with c/ o Lower extremity edema, erythema and pain - Patient Problems (1) Cor pulmonale Comment: - unclear etiology. CTA negative for PE. Spoke with Dr. Sterling radiologist to review the imaging this morning and he confirms no PE. Pt does have long hx of smoking with no dx of COPD as well this is acute as his TTE in nov only shows mild-mod pulm htn. - appreciate pulmonology consult; appears to be no PE. unclear etiology. Possibly secondary to hypoxemia ? Pt is currently requiring 10 L Oxygen. Plan for ABG and recommends transfer to [facility]U. - appreciate cardiology consult - does not think this is secondary to infarct, D /C heparin gtt. suggests pulm consult. - normal INR and mildly elevate LFTs - TTE showing resolution of LV dysfunction that was noted in February 2016 - EF now 50-55% up from 35%. RV severely dilated and mod-severe pulm htn. - start metoprolol 25 mg PO BID - Hold lasix for now (He received total of 40 mg IV in ED and 80 IV this morning ) and continu to monitor - noted 16 beat Vtach overnight with a 3-4 beat today - replace K+, mg wnls. recheck in am. (2) Elevated troponin Comment: - Trop peaked at 0.71. no CP or EKG changes. - appreciate cards consult. ok to DC heparin gtt, suspects secondary to RV failure (3) Alcohol abuse Comment: - no hx of detox seizures or delirium tremens - [facility] protocol. continue ativan IV prn - Liver ultrasound 03/03/16 showing fatty infiltration of liver and cholelithiasis w/o acute leonor findings - continue folic acid, thiamine, multi-vitamin (4) Vascular disease Comment: - Per mom he is followed by vascular surgeon continue ASA. smoking cessation. (5) DVT prophylaxis Comment: - Heparin SQ (6) Full code status Status and Disposition: inpatient with cor pulmonale, Alcohol detox requiring ICU monitoring
[2016-05-16] MEDS: Folic Acid TAB* 1 MG PO SCH (10:08)
[2016-05-16] MEDS: Aspirin EC Low Dose* 81 MG TAB.EC PO SCH (10:08)
[2016-05-16] MEDS: Multivitamins/Minerals TAB PO SCH (10:08)
[2016-05-16] MEDS: Furosemide IV* 10 MG/ML VIAL (40 MG) IV SCH (10:08)
[2016-05-16] MEDS: Lisinopril TAB* 5 MG PO SCH (10:08)
--- NOTE | 2016-05-16 10:32 | ECHO ---
Patient: SARAH SMALL [facility] Rec#: [id number] : 1970 Date: 05/16/2016 Age: 46y Height: 187.96 cm / 74.0 in Weight: 68 kg / 149.9 lbs Sex: M BSA: 1.92 Room#: 437 Admit Date#: 05/15/2016 Type: Inpatient Referring: Zander Rodriguez Reading: Ashu Sapp MD Silverware Etcher: Janet Summers Silverware Etcher: Lorna Edwards RDCS CC: Ritesh Tsai MD Transthoracic Echocardiogram Indication: CHF BP: 112/68 HR: 118 Rhythm: Tachycardia Findings History: HTN, CVA, CM, PVD, ETOH, seizures. Technical Comments: The study quality is fair. Completed at 0832. Left Ventricle: The left ventricular chamber size is normal. Mild concentric left ventricular hypertrophy is observed. Global left ventricular wall motion and contractility are within normal limits. Left ventricular systolic function is at the lower limits of normal. The estimated ejection fraction is 50-55%. There is septal flattening of the interventricular septum consistent with right ventricular volume or pressure overload. The assessment of diastolic function is non-diagnostic. The patient was unable to perform a Valsalva maneuver. Left Atrium: The left atrial chamber size is normal. Right Ventricle: The right ventricle is severely dilated. The right ventricular global systolic function is severely reduced. Flattened in diastole (D shaped left ventricle) consistent with right ventricular volume overload. Right Atrium: The right atrium is moderately dilated. A prominent eustachian valve is noted in the right atrium. Aortic Valve: The aortic valve is trileaflet. There is no evidence of aortic valve thickening. There is no evidence of aortic regurgitation. There is no evidence of aortic stenosis. Mitral Valve: There is prolapse of the anterior leaflet of the mitral valve. There is prolapse of the posterior leaflet of the mitral valve. There is trace to mild mitral regurgitation. Tricuspid Valve: The tricuspid valve leaflets are mildly thickened. Tricuspid valve leaflet mobility appears normal. There is moderate tricuspid regurgitation. There is evidence of moderate to severe pulmonary hypertension. Pulmonic Valve: The pulmonic valve appears normal. There is a trace pulmonic regurgitation. There is no pulmonic stenosis. Pericardium: There is no significant pericardial effusion. Aorta: There is no dilatation of the ascending aorta. The aortic arch is not well visualized. There is moderate dilatation of the aortic root. Pulmonary Artery: The main pulmonary artery appears normal. Venous: The inferior vena cava is dilated. There is an approximate 50% respiratory change in the inferior vena cava dimension. Conclusions Left ventricular systolic function is at the lower limits of normal. The estimated ejection fraction is 50-55%. Global left ventricular wall motion and contractility are within normal limits. The left ventricular chamber size is normal. Mild concentric left ventricular hypertrophy is observed. There is septal flattening of the interventricular septum consistent with right ventricular volume or pressure overload. The right ventricle is severely dilated. The right ventricular global systolic function is severely reduced. Flattened in diastole (D shaped left ventricle) consistent with right ventricular volume overload. There is mild prolapse of the mitral valve leaflets. There is trace to mild mitral regurgitation. There is moderate tricuspid regurgitation. There is evidence of moderate to severe pulmonary hypertension. There is moderate dilatation of the aortic root. There is no prior echocardiogram available to compare with at this time. Ordering provider notified by telephone to review results as well. Measurements Name Value Normal Range RVIDd (AP) 2D 5.9 cm (0.9 - 2.6) RVDdMajor (2D) 6.9 cm (2.2 - 4.4) RAd ISD 4CH 5.9 cm (3.4 - 4.9) RA (A4C)W 5.4 cm (2.9 - 4.6) IVSd (2D) 1.3 cm (0.6 - 1) LVPWd (2D) 1.2 cm (0.6 - 1) LVIDd (2D) 4.7 cm (3.6 - 5.4) LVIDs (2D) 3.5 cm - LV FS (2D) 26 % (25 - 45) Aortic Annulus 2.6 cm (1.4 - 2.6) Ao root diameter (2D) 4.4 cm (2.1 - 3.5) Ascending Ao 3.1 cm (2.1 - 3.4) LA dimension (AP) 2D 3.8 cm (2.3 - 3.8) LAd ISD 4CH 4.4 cm (2.9 - 5.3) LA ISD 4CH W 3.7 cm (2.5 - 4.5) Name Value Normal Range LA ESV SP 4CH (A/L) 28 ml - LA ESV SP 2CH (A/L) 37 ml - LA ESV BP (A/L) 34 ml - LA ESV BP (A/L) index 17.69 ml/m2 - LA ESV SP 4CH (MOD) 25 ml - LA ESV SP 2CH (MOD) 36 ml - Name Value Normal Range MV E-wave Vmax 0.87 m/sec - MV deceleration time 89 msec - MV A-wave Vmax 0.97 m/sec - MV E:A ratio 0.9 ratio - LV septal e' Vmax 0.12 m/sec - LV lateral e' Vmax 0.04 m/sec - LV E:e' septal ratio 7.5 ratio - LV E:e' lateral ratio 22.5 ratio - Name Value Normal Range AV Vmax 1.4 m/sec - AV VTI 23 cm - AV peak gradient 7.34 mmHg - AV mean gradient 3.8 mmHg - LVOT Vmax 0.9 m/sec - LVOT peak gradient 3.11 mmHg - LVOT mean gradient 1.76 mmHg - Name Value Normal Range MR Vmax 4.7 m/sec - MR VTI 69 cm - Name Value Normal Range TR Vmax 3.4 m/sec - TR peak gradient 45 mmHg - RAP 15 mmHg - RVSP 60 mmHg - IVC diameter 2.3 cm - Name Value Normal Range PV Vmax 0.7 m/sec - PV peak gradient 1.8 mmHg -
[2016-05-16] MEDS ORDERED: Metoprolol Tartrate TAB* 25 MG PO ONE (10:59)
[2016-05-16] MEDS: KCL 20 MEQ/100 ML IVPREMIX* 20 MEQ/100 ML BAG IV SCH ×2 (13:00→15:26)
[2016-05-16] MEDS ORDERED: Albumin Human 5%* 250 ML in PREMIX* 0 ML IV ONE (14:00)
[2016-05-16 14:32] LABS: FIO2 10
[2016-05-16 14:43] LABS: PCO2 Arterial 72 mmHg (35-45)
[2016-05-16] MEDS: LORazepam INJ* 2 MG/ML 1 ML VIAL IV SCH ×3 (17:36→22:43)
[2016-05-16] MEDS: Atorvastatin* 40 MG TAB PO SCH ×2 (17:38→18:06)
[2016-05-16] MEDS: metroNIDAZOLE IV 500 MG/100ML* 500 MG/100 ML BAG IVPB SCH ×2 (17:38→23:19)
--- NOTE | 2016-05-16 17:52 | CONS ---
CC: Dr. Evie Amato CARDIOLOGY CONSULTATION: DATE OF CONSULT: 05/16/16 REFERRAL PROVIDER: Tami Sanz NP REASON FOR CARDIOLOGY CONSULT: Right heart failure/cor pulmonale. HISTORY OF PRESENT ILLNESS: Mr. Gusman is a 46-year-old gentleman admitted to the hospital with lower extremity edema, erythema, and pain. He is known to have history of alcoholic cardiomyopathy, hypertension, prior CVA, and severe PVD. He apparently had several weeks of bilateral lower extremity edema, erythema, and pain. His mother finally talked to him into coming to the hospital per the admitting documentation. The patient is noncompliant with his outpatient medications. The patient is currently on sedation for alcohol withdrawal precautions and is not communicative in a meaningful fashion. It does not appear that he has chest pain. PAST MEDICAL HISTORY: Includes chronic alcoholism without history of seizure, hypertension, CVA, alcoholic cardiomyopathy, PVD including followed by a vascular surgeon. OUTPATIENT MEDICATIONS: Aspirin 81 mg once a day. He was reportedly where he has had been asked to take: 1. Lisinopril. 2. Aspirin. 3. Statin. 4. Thiamine. 5. Folic acid but he has been noncompliant with many of those medications. SOCIAL HISTORY: It is reported the patient lives at home with his mother. He is a heavy beer drinker and smokes 1 pack of cigarettes daily for [id number] smoking history. He is unemployed and receives social security income for disability. REVIEW OF SYSTEMS: Unable to obtain as the patient is sedated and appears obtunded. PHYSICAL EXAM: General: He is a chronically ill-appearing gentleman with muscle wasting, who is lying in the ordoñez bed in no acute distress. His temperature is 99.3 degrees Fahrenheit, his blood pressure is 120/74 to 104/56, pulse is 122 to 116, O2 saturation 94%, respiratory rate 16. HEENT shows dry mucosal membranes. Neck veins reveal JVP of 12 cm while sitting at a 60-degree angle. No carotid bruits. Visible skin warm and perfuse. Affect, he is arousable, unable to obtain further. No significant kyphoscoliosis on recumbent back exam. Lungs reveal few rhonchi anteriorly. No wheezes. Cardiac exam: S1, S2. Regular rate. No significant murmurs. PMI is nondisplaced. Abdomen: Soft, nondistended, appears benign. Extremities: With no more than trivial peripheral edema. Appears to have generalized muscle wasting. Pulses are difficult to palpate in his lower extremities. DIAGNOSTIC STUDIES/LAB DATA: Transthoracic echocardiogram completed earlier today (please see also that report) demonstrates low normal left ventricular ejection fraction of 50% to 55% with severely dilated right ventricle with severely depressed right ventricular function with evidence of right ventricular volume and/or pressure overload, moderate tricuspid regurgitation with [id number] pulmonary hypertension, moderate dilatation of the aortic root, and mild prolapse of the mitral valve leaflets. Now available to me, when compared to the prior echocardiogram completed and in comparison changes are prior left ventricular ejection fraction reported 35% to 40%, prior right ventricular size noted normal with mild-to- moderately depressed right ventricular function. Prior [id number] tricuspid regurgitation noted with mild pulmonary hypertension and prior ascending aortic dilatation at 3.7 cm which is mild. Sodium 136, potassium 3.3, chloride 98, bicarbonate 35, BUN 4, creatinine 0.43, calcium 8.3, magnesium 2.0. Troponin was 0.68, followed by 0.71, followed by 0.45. BNP was 1306 yesterday and today 2207. Albumin 2.5. TSH normal at 2.06. INR 1.06. D-dimer abnormal at 301. White blood cell count 10.9, hematocrit 38, platelet count 202. CTA of the chest report per radiologist states no CT evidence of acute pulmonary embolic disease. Tele- 16 beat elijah of MMVT seen. IMPRESSION: Mr. Gusman is a 46-year-old gentleman with worsening cor pulmonale physiology since 02/24/16. His prior reported lower extremity edema appears due to right heart failure and is clinically not significant on his exam today. Agree with pulmonary evaluation as is pending. There does not appear to be a primary cardiac cause for this worsening cor pulmonale physiology including isolated right ventricular infarction is very unlikely in absence of inferior wall myocardial infarction, he has preserved left ventricular function and left sided valves appear intact. His increased troponin and BNP appear due to right ventricular failure. Other contributing causes to his cor pulmonale physiology include ongoing alcohol and tobacco abuse as well as significant pulmonary hypertension. RECOMMENDATIONS: 1. Agree with pulmonary evaluation as is pending for definitive opinion on exclusion of PE as well as other potential causes of pulmonary hypertension with secondary cor pulmonale physiology. 2. . Prior MMVT likely due to RV strain in setting of hypokalemia and hypomagnesemia. Agree with beta nova for as blood pressure tolerates and would keep potassium greater than 4 and magnesium greater than 2. Given his known normal left ventricular ejection fraction, risk of sudden cardiac would appear to be less. 3. Other management as per Ms. Sanz including review of ionized calcium level. The case has been discussed with Ms. Yvon NP, of the hospitalist medicine service. Many thanks for this kind cardiac consultation opportunity. Please do not hesitate to contact me if you have any questions or concerns regarding the patient's cardiovascular consultative care. We would recommend followup of his dilated aorta as an outpatient as well with repeat echocardiogram, it does appear progressed from prior. [id number]/[facility] #: [id number] PHILIPPE
[2016-05-16] MEDS ORDERED: Nicotine PATCH 21 MG/24 HR* PATCH TRANSDERM SCH (18:00)
[2016-05-16] MEDS ORDERED: Calcium Gluconate INJ* 1 GM in NS 0.9% 50 ML* 50 ML IVPB ONE (19:05)
--- NOTE | 2016-05-16 20:52 | CONS ---
PULMONARY CONSULTATION REPORT: DATE OF CONSULT: 05/16/16 CONSULTATION REQUESTED BY: Tami Sanz NP. REASON FOR CONSULTATION: Evaluation of hypoxemia, right heart failure. HISTORY OF PRESENT ILLNESS: The patient is a 46-year-old male with a history of alcohol abuse, systolic heart failure with an ejection fraction of 35% to 40 % secondary to alcohol cardiomyopathy, hypertension, prior CVA, peripheral vascular disease. The patient was brought in to emergency room by mother for evaluation of worsening lower extremity edema and pain. The patient's lower extremities have been swelling over the past few days, swelling has been gradually worsening. The patient denied chest pain or shortness of breath prior to ED evaluation. The patient has been chronically ill. He has been consuming alcohol regularly. The patient has been having worsening mental status since admission. He has also been more confused at home. The patient was seen and examined by me this morning. The patient is alert, but has been falling back to sleep quickly. He also was noted to have shakiness, tremors in upper extremities. The patient is apparently on O2 supplementation at 9 L per minute with O2 sats at 90%. Further evaluation has revealed elevated troponins , echocardiogram showing dilatation of right ventricle, which is significantly dilated compared to his last echo, and improved ejection fraction. The patient also noted to have significant pulmonary hypertension. The patient was given Lasix and was started on heparin drip for possible acute coronary syndrome. The patient was evaluated by Cardiology this morning and it was felt that it is less likely to be cardiac in nature. The patient is not able to provide much history. He denies shortness of breath. The patient also with significant smoking history and COPD. He has not been treated for his COPD. It is not known if he was hypoxemic in the past. The patient has not been eating well as per the mother. Much history is prompted by his mother; however, she did not have much details about his medical condition. The patient in the ED yesterday was found to be hypoxemic with O2 sats at 80%, evidence of tachycardia at 125 beats per minute. He was placed on O2 supplementation, given 40 mg of IV Lasix and DuoNeb treatments. PAST MEDICAL HISTORY: 1. Chronic alcoholism and history of seizures. 2. Hypertension. 3. CVA. 4. 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 5. Peripheral vascular disease. PAST SURGICAL HISTORY: 1. Tonsillectomy. 2. Appendectomy. MEDICATIONS AT HOME: Aspirin 81 mg daily. SOCIAL HISTORY: Lives at home with mother. Heavy beer drinker, consumes 8 to 12 beers per day and smokes 1 pack of cigarettes daily and has 81-adic-swcf smoking history. REVIEW OF SYSTEMS: All systems were reviewed; however, limited secondary to the patient's condition. PHYSICAL EXAM: The patient in bed in no apparent distress, falls asleep during conversation. Vital Signs: Temperature 99.3, heart rate 116 beats per minute, respiratory rate 16 per minute, O2 sat 90% on 9 L, blood pressure 104/56. HEENT : Pupils equal, reactive to light. Mucous membranes moist. No JVD. Respiratory: Diffuse rhonchi bilaterally. No crackles or wheezes. Cardiovascular: S1, S2 present. Tachycardic. No murmurs. Abdomen: Soft, nontender, distended. Extremities: 1+ edema bilaterally, was 3+ yesterday on admission as per admission H and P. Neuro: The patient is alert and oriented x3; however, is lethargic, and falls back to sleep easily during conversation. He also has tremors of upper extremity. Detailed neuro exam could not be performed at this time. DIAGNOSTIC STUDIES/LABORATORY WORKUP: WBC count 10.9, hemoglobin 11.6, hematocrit 38, platelet count 202. INR 36.1. Sodium 136, potassium 3.3, chloride 98, bicarb 35, BUN 4, creatinine 0.43, lactic acid 1.8. Total bilirubin direct 1.80, AST of 67, alk phos 259, ammonia 75. Troponin is elevated at 0.71 with repeat one at 0.68. BNP 2207. Albumin is 2.5. Chest x-ray on admission was personally reviewed by me - patchy airspace opacities in the right lung noted. CT of the chest was also reviewed by me personally - no evidence of filling defects. No evidence of mediastinal or hilar adenopathy. No pulmonary parenchymal masses or infiltrates noted. Pulmonary artery is mildly dilated. Repeat chest x-ray from this morning was reviewed - worsening airspace opacities more consistent with cardiogenic pulmonary edema. Echocardiogram from this morning was suggestive of normal LV systolic function with ventricular hypertrophy. There is evidence of septal flattening of the interventricular septum consistent with right ventricular volume overload or pressure overload. Right ventricle is also severely dilated. Evidence of moderate to severe pulmonary hypertension. IMPRESSION AND RECOMMENDATIONS: 46-year-old male with a history of ETOH abuse , significant smoking history, poor oral intake with hypoalbuminemia admitted for evaluation of worsening lower extremity swelling and altered mental status. 1. Altered mental status secondary to hepatic encephalopathy, given elevated ammonia. 2. Right ventricular failure with acute cor pulmonale secondary to hypoxemia. 3. Hypoxemic and hypercapnic respiratory failure. 4. Elevated troponins, likely stress-induced ischemia. 5. Elevated BNP likely secondary to decompensated heart failure and respiratory distress. 6. Hypoalbuminemia, probably nutritional. 7. Elevated ammonia and LFTs, concerning for possible cirrhosis and hepatic encephalopathy. Would recommend monitoring the patient closely in the intensive care unit. The patient might benefit from BiPAP if mental status allows. Aspiration precautions and seizure precautions. Need to watch closely for DTs . Would recommend starting the patient on empiric antibiotics. Continue with lactulose, Ativan, thiamine. Beta blockers started given tachycardia and elevated troponins. The patient expressed willingness to be full code. If hypoxemia worsens or if mental status worsens, he might need intubation. Heart failure probably was the reason for worsening hypoxemia resulting in worsening pulmonary hypertension and acute cor pulmonale. Thank you for allowing me to participate in the care of your patient. Will follow up with you. [id number]/[facility] #: [id number] PHILIPPE
[2016-05-16] MEDS: Metoprolol Tartrate TAB* 25 MG PO SCH ×2 (21:04→22:24)
[2016-05-17] MEDS ORDERED: Succinylcholine* 20 MG/ML 10 ML VIAL ONE (00:31)
[2016-05-17] MEDS: LORazepam INJ* 2 MG/ML 1 ML VIAL IV SCH ×3 (01:25→08:16)
[2016-05-17 05:47] LABS: Hematocrit 40 % (42-52); Hemoglobin 11.8 g/dl (14.0-18.0); Mean Corpuscular HGB Conc 29 g/dl (31-36); Mean Corpuscular Hemoglobin 28 pg (27-31); Mean Corpuscular Volume 97 fL (80-94); Mean Platelet Volume 7 um3 (7.4-10.4); Red Blood Count 4.18 10^6/ul (4.0-5.4); White Blood Count 12.9 10^3/ul (3.5-10.8)
[2016-05-17 05:48] LABS: Albumin 2.6 g/dL (3.2-5.2); BUN/Creatinine Ratio 6.3 (8-20); Calcium 8.6 mg/dL (8.6-10.3); EGFR African American 239.3 (>60); Magnesium 1.8 mg/dL (1.9-2.7); Total Bilirubin 1.7 mg/dL (0.2-1.0); Total Protein 5.6 g/dL (6.4-8.9)
[2016-05-17 05:52] LABS: Comments Flag Yes
[2016-05-17 05:55] LABS: Red Cell Distribution Width 23 % (10.5-15)
[2016-05-17] MEDS: metroNIDAZOLE IV 500 MG/100ML* 500 MG/100 ML BAG IVPB SCH ×2 (06:23→13:26)
[2016-05-17] MEDS: KCL 20 MEQ/100 ML IVPREMIX* 20 MEQ/100 ML BAG IV SCH ×2 (06:45→09:00)
[2016-05-17] MEDS ORDERED: KCL 20 MEQ/100 ML IVPREMIX* 20 MEQ/100 ML BAG IV ONE (07:30)
--- NOTE | 2016-05-17 07:43 | PN ---
Subjective Date of Service: 05/17/16 Interval History: patient evaluated at the bedside. Patient opens eyes to voice with minimal response. Overnight was placed on Vapotherm 40L 100% - this morning on exam O2 sats 85-88%, HR 130's, SBP 80-90's. Evaluated patient with Dr. Cee - chest xray worse this morning and with hypoxia plan for intubation and transfer to Dr. Westbrook service Objective Active Medications: Acetaminophen (Tylenol Tab*) 650 mg PO Q4H PRN PRN Reason: FEVER/PAIN Aspirin (Aspirin Ec Low Dose*) 81 mg PO DAILY [facility] Last Admin: 05/16/16 10:08 Dose: 81 mg Atorvastatin Calcium (Lipitor*) 40 mg PO 1700 [facility] Last Admin: 05/16/16 18:06 Dose: Not Given Folic Acid (Folvite Tab*) 1 mg PO DAILY [facility] Last Admin: 05/16/16 10:08 Dose: 1 mg Furosemide (Lasix Iv*) 40 mg IV DAILY [facility] Last Admin: 05/16/16 10:08 Dose: 40 mg Heparin Sodium (Porcine) (Heparin Vial(*)) 0 units IV .PER PROTOCOL [facility] PRN Reason: Protocol Last Admin: 05/16/16 10:57 Dose: 5,100 units Metronidazole/Sodium Chloride (Flagyl 500 Mg Ivpb*) 500 mg in 100 mls @ 100 mls /hr IVPB Q8H [facility] Last Admin: 05/17/16 06:23 Dose: 100 mls/hr Potassium Chloride (Potassium Chloride 20 Meq/100 Ml Ivpremix*) 20 meq in 100 mls @ 50 mls/hr IV Q2H [facility] Stop: 05/17/16 09:59 Last Admin: 05/17/16 06:45 Dose: 50 mls/hr Magnesium Sulfate (Magnesium Sulfate 2 Gm Iv*) 2 gm in 50 mls @ 50 mls/hr IVPB ONCE ONE Stop: 05/17/16 08:25 Potassium Chloride (Potassium Chloride 20 Meq/100 Ml Ivpremix*) 20 meq in 100 mls @ 50 mls/hr IV ONCE ONE Stop: 05/17/16 09:28 Lactulose (Lactulose*) 30 ml PO TID [facility] Last Admin: 05/16/16 21:05 Dose: Not Given Lisinopril (Prinivil Tab*) 5 mg PO DAILY [facility] Last Admin: 05/16/16 10:08 Dose: 5 mg Lorazepam (Ativan Inj*) 0 mg IV .PER WAM SCORE [facility] PRN Reason: Protocol Last Admin: 05/17/16 04:03 Dose: 3 mg Metoprolol Tartrate (Lopressor Tab*) 25 mg PO BID [facility] Last Admin: 05/16/16 22:24 Dose: 25 mg Multivitamins/Minerals (Theragran/Minerals Tab*) 1 tab PO DAILY [facility] Last Admin: 05/16/16 10:08 Dose: 1 tab Nicotine (Nicotine Patch 21 Mg/24 Hr*) 1 patch TRANSDERM DAILY [facility] Last Admin: 05/16/16 18:02 Dose: 1 patch Ondansetron HCl (Zofran Inj*) 4 mg IV Q4H PRN PRN Reason: NAUSEA/VOMITING Pharmacy Profile Note (Nicotine Patch Removal Note*) 1 note PATCH OFF 2099 [facility] Thiamine HCl (Vitamin B-1 Tab*) 100 mg PO DAILY [facility] Last Admin: 05/16/16 10:08 Dose: 100 mg Vital Signs 05/17/16 05/17/16 05/17/16 02:28 03:00 03:54 Temperature Pulse Rate 109 114 Respiratory 16 17 17 Rate Blood Pressure 98/65 106/59 (mmHg) O2 Sat by Pulse 100 98 Oximetry 05/17/16 05/17/16 05/17/16 04:00 04:03 05:00 Temperature 99.4 F Pulse Rate 119 114 Respiratory 16 18 15 Rate Blood Pressure 98/65 97/55 (mmHg) O2 Sat by Pulse 94 100 Oximetry 05/17/16 06:00 Temperature Pulse Rate 111 Respiratory 13 Rate Blood Pressure 92/57 (mmHg) O2 Sat by Pulse 100 Oximetry Oxygen Devices in Use Now: High Flow Nasal Cannula - 40 L 100% Appearance: chornically ill appearing male laying in bed minimally responsive - opens eyes to voice Eyes: PERRLA Respiratory: - - diminshed b/l, scattered rhonchi - Cardiovascular: - - tachycardic, trace LE b/l edema Extremities: No Clubbing, Cyanosis Neurological: - - open eyes to voice Lines/Tubes/Other Access: Clean, Dry and Intact Peripheral IV Nutrition: Taking PO's Result Diagrams: 05/17/16 05:23 05/17/16 05:23 Additional Lab and Data: Lab Results 05/15/16 05/15/16 05/15/16 Range/Units 15:27 15:27 15:27 WBC 11.2 H (3.5-10.8) 10^3/ul RBC 4.22 (4.0-5.4) 10^6/ul Hgb 12.5 L (14.0-18.0) g/dl Hct 40 L (42-52) % MCV 94 (80-94) fL MCH 30 (27-31) pg MCHC 31 (31-36) g/dl RDW 22 H (10.5-15) % Plt Count 240 (150-450) 10^3/ul MPV 7 L (7.4-10.4) um3 Neut % (Auto) 85.8 H (38-83) % Lymph % (Auto) 5.5 L (25-47) % [place] % (Auto) 8.5 (1-9) % Eos % (Auto) 0 (0-6) % Baso % (Auto) 0.2 (0-2) % Absolute Neuts (auto) 9.6 H (1.5-7.7) 10^3/ul Absolute Lymphs (auto) 0.6 L (1.0-4.8) 10^3/ul Absolute Monos (auto) 1.0 H (0-0.8) 10^3/ul Absolute Eos (auto) 0 (0-0.6) 10^3/ul Absolute Basos (auto) 0 (0-0.2) 10^3/ul Absolute Nucleated RBC 0.18 10^3/ul Nucleated RBC % 1.6 INR (Anticoag Therapy) 1.06 (0.89-1.11) APTT 30.7 (26.0-36.3) seconds D-Dimer, Quantitative 301 H (Less Than 230) ng/mL Sodium 130 L (133-145) mmol/L Potassium 4.6 (3.5-5.0) mmol/L Chloride 95 L (101-111) mmol/L Carbon Dioxide 28 (22-32) mmol/L Anion Gap 7 (2-11) mmol/L BUN 3 L (6-24) mg/dL Creatinine 0.40 L (0.67-1.17) mg/dL Est GFR ( Amer) 295.3 (>60) Est GFR (Non-Af Amer) 229.6 (>60) BUN/Creatinine Ratio 7.5 L (8-20) Glucose 99 (70-100) mg/dL Lactic Acid (0.5-2.0) mmol/L Calcium 8.6 (8.6-10.3) mg/dL Magnesium 2.0 (1.9-2.7) mg/dL Total Bilirubin 2.00 H (0.2-1.0) mg/dL AST 77 H (13-39) U/L ALT 36 (7-52) U/L Alkaline Phosphatase 306 H (34-104) U/L Total Creatine Kinase 69 (10-223) U/L CK-MB (CK-2) 5.4 (0.6-6.3) ng/mL Troponin I 0.45 H* (<0.04) ng/mL C-Reactive Protein 16.13 H (< 5.00) mg/L B-Natriuretic Peptide ( - 100) pg/mL Total Protein 6.5 (6.4-8.9) g/dL Albumin 2.9 L (3.2-5.2) g/dL Globulin 3.6 (2-4) g/dL Albumin/Globulin Ratio 0.8 L (1-3) Lipase 25 (11.0-82.0) U/L TSH 2.06 (0.34-5.60) mcIU/mL Urine Color Urine Appearance Urine pH (5-9) Ur Specific [place] (1.010-1.030) Urine Protein (Negative) Urine Ketones (Negative) Urine Blood (Negative) Urine Nitrate (Negative) Urine Bilirubin (Negative) Urine Urobilinogen (Negative) Ur Leukocyte Esterase (Negative) Urine Glucose (Negative) Influenza A (Rapid) (Negative) Influenza B (Rapid) (Negative) 05/15/16 05/15/16 05/15/16 Range/Units 15:27 15:27 16:35 WBC (3.5-10.8) 10^3/ul RBC (4.0-5.4) 10^6/ul Hgb (14.0-18.0) g/dl Hct (42-52) % MCV (80-94) fL MCH (27-31) pg MCHC (31-36) g/dl RDW (10.5-15) % Plt Count (150-450) 10^3/ul MPV (7.4-10.4) um3 Neut % (Auto) (38-83) % Lymph % (Auto) (25-47) % [place] % (Auto) (1-9) % Eos % (Auto) (0-6) % Baso % (Auto) (0-2) % Absolute Neuts (auto) (1.5-7.7) 10^3/ul Absolute Lymphs (auto) (1.0-4.8) 10^3/ul Absolute Monos (auto) (0-0.8) 10^3/ul Absolute Eos (auto) (0-0.6) 10^3/ul Absolute Basos (auto) (0-0.2) 10^3/ul Absolute Nucleated RBC 10^3/ul Nucleated RBC % INR (Anticoag Therapy) (0.89-1.11) APTT (26.0-36.3) seconds D-Dimer, Quantitative (Less Than 230) ng/mL Sodium (133-145) mmol/L Potassium (3.5-5.0) mmol/L Chloride (101-111) mmol/L Carbon Dioxide (22-32) mmol/L Anion Gap (2-11) mmol/L BUN (6-24) mg/dL Creatinine (0.67-1.17) mg/dL Est GFR ( Amer) (>60) Est GFR (Non-Af Amer) (>60) BUN/Creatinine Ratio (8-20) Glucose (70-100) mg/dL Lactic Acid 1.8 (0.5-2.0) mmol/L Calcium (8.6-10.3) mg/dL Magnesium (1.9-2.7) mg/dL Total Bilirubin (0.2-1.0) mg/dL AST (13-39) U/L ALT (7-52) U/L Alkaline Phosphatase (34-104) U/L Total Creatine Kinase (10-223) U/L CK-MB (CK-2) (0.6-6.3) ng/mL Troponin I (<0.04) ng/mL C-Reactive Protein (< 5.00) mg/L B-Natriuretic Peptide 1306 H ( - 100) pg/mL Total Protein (6.4-8.9) g/dL Albumin (3.2-5.2) g/dL Globulin (2-4) g/dL Albumin/Globulin Ratio (1-3) Lipase (11.0-82.0) U/L TSH (0.34-5.60) mcIU/mL Urine Color Urine Appearance Urine pH (5-9) Ur Specific [place] (1.010-1.030) Urine Protein (Negative) Urine Ketones (Negative) Urine Blood (Negative) Urine Nitrate (Negative) Urine Bilirubin (Negative) Urine Urobilinogen (Negative) Ur Leukocyte Esterase (Negative) Urine Glucose (Negative) Influenza A (Rapid) Negative (Negative) Influenza B (Rapid) Negative (Negative) 05/15/16 Range/Units 16:49 WBC (3.5-10.8) 10^3/ul RBC (4.0-5.4) 10^6/ul Hgb (14.0-18.0) g/dl Hct (42-52) % MCV (80-94) fL MCH (27-31) pg MCHC (31-36) g/dl RDW (10.5-15) % Plt Count (150-450) 10^3/ul MPV (7.4-10.4) um3 Neut % (Auto) (38-83) % Lymph % (Auto) (25-47) % [place] % (Auto) (1-9) % Eos % (Auto) (0-6) % Baso % (Auto) (0-2) % Absolute Neuts (auto) (1.5-7.7) 10^3/ul Absolute Lymphs (auto) (1.0-4.8) 10^3/ul Absolute Monos (auto) (0-0.8) 10^3/ul Absolute Eos (auto) (0-0.6) 10^3/ul Absolute Basos (auto) (0-0.2) 10^3/ul Absolute Nucleated RBC 10^3/ul Nucleated RBC % INR (Anticoag Therapy) (0.89-1.11) APTT (26.0-36.3) seconds D-Dimer, Quantitative (Less Than 230) ng/mL Sodium (133-145) mmol/L Potassium (3.5-5.0) mmol/L Chloride (101-111) mmol/L Carbon Dioxide (22-32) mmol/L Anion Gap (2-11) mmol/L BUN (6-24) mg/dL Creatinine (0.67-1.17) mg/dL Est GFR ( Amer) (>60) Est GFR (Non-Af Amer) (>60) BUN/Creatinine Ratio (8-20) Glucose (70-100) mg/dL Lactic Acid (0.5-2.0) mmol/L Calcium (8.6-10.3) mg/dL Magnesium (1.9-2.7) mg/dL Total Bilirubin (0.2-1.0) mg/dL AST (13-39) U/L ALT (7-52) U/L Alkaline Phosphatase (34-104) U/L Total Creatine Kinase (10-223) U/L CK-MB (CK-2) (0.6-6.3) ng/mL Troponin I (<0.04) ng/mL C-Reactive Protein (< 5.00) mg/L B-Natriuretic Peptide ( - 100) pg/mL Total Protein (6.4-8.9) g/dL Albumin (3.2-5.2) g/dL Globulin (2-4) g/dL Albumin/Globulin Ratio (1-3) Lipase (11.0-82.0) U/L TSH (0.34-5.60) mcIU/mL Urine Color Straw Urine Appearance Clear Urine pH 5.0 (5-9) Ur Specific [place] 1.003 L (1.010-1.030) Urine Protein Negative (Negative) Urine Ketones Negative (Negative) Urine Blood Negative (Negative) Urine Nitrate Negative (Negative) Urine Bilirubin Negative (Negative) Urine Urobilinogen Negative (Negative) Ur Leukocyte Esterase Negative (Negative) Urine Glucose Negative (Negative) Influenza A (Rapid) (Negative) Influenza B (Rapid) (Negative) Assess/Plan/Problems-Billing Assessment: Mr. Gusman is a 46 yo male with a PMH of cardiomyopathy EF 35-40% likely due to ETOH abuse, HTN, hx CVA, severe PVD who presented on 05/15 with c/ o Lower extremity edema, erythema and pain - Patient Problems (1) Altered mental status Comment: - suspect mix of hepatic encephalopathy with elevated ammonia, ETOH detox and hypoxia. (2) Cor pulmonale Comment: - unclear etiology. CTA negative for PE. Possible hepatopulmonary syndrome? - appreciate pulmonology consult 05/17; reveiwed CTA and agrees no PE. Suspects HF was the probably reason for worsening hypxoemia in worsening pulm hypertension and acute cor pulmonale. - appreciate cardiology consult 05/16 - does not think this is secondary to infarct. Agreed with starting BB. - TTE showing resolution of LV dysfunction that was noted in February 2016 - EF now 50-55% up from 35%. RV severely dilated and now mod-severe pulm htn. - Continue metoprolol 25 mg PO BID - Montior electrolytes; replace K+ and mg. (3) Respiratory failure with hypoxia and hypercapnia Comment: - increased oxygen demands overnight now on Vapotherm 40 L 100% - Plan for Campus Security Officer to take over patient care. (4) Elevated troponin Comment: - Trop peaked at 0.71. no CP or EKG changes. - appreciate cards consult. ok to DC heparin gtt, suspects secondary to RV failure and demand (5) Alcohol abuse Comment: - no hx of detox seizures or delirium tremens - [facility] protocol. continue ativan IV prn - Liver ultrasound 03/03/16 showing fatty infiltration of liver and cholelithiasis w/o acute leonor findings - continue folic acid, thiamine, multi-vitamin (6) Hypoalbuminemia due to protein-calorie malnutrition Comment: - pt appears to have muscle wasting; secondary to ETOH abuse - Albumin 2.6; add on prealbumin - Pt recieved albumin yesterday per Dr. Gamboa (7) Vascular disease Comment: - Per mom he is followed by vascular surgeon continue ASA. smoking cessation. (8) Tobacco abuse Comment: - D/C nicotine patch due to tachycardia (9) DVT prophylaxis Comment: - Heparin SQ (10) Full code status Status and Disposition: inpatient with cor pulmonale, acute hypoxic and hypercapnic respiratory failure , ETOH detox now requiring intubation. Plan to transfer to Dr. Dariana stoner.
[2016-05-17] MEDS ORDERED: Magnesium Sulfate 2 GM IV* 2 GM/50 ML BAG IVPB ONE (08:00)
[2016-05-17] MEDS: Furosemide IV* 10 MG/ML VIAL (40 MG) IV SCH (08:16)
[2016-05-17] MEDS ORDERED: Etomidate* 2 MG/ML 20 ML VIAL (40 MG) ONE (08:40)
[2016-05-17] MEDS ORDERED: Propofol* 100 ML ONE ×2 (08:41→15:23)
[2016-05-17] MEDS ORDERED: fentaNYL* 50 MCG/ML 5 ML VIAL (250 MCG VIAL) ONE (08:41)
[2016-05-17] MEDS: Aspirin EC Low Dose* 81 MG TAB.EC PO SCH (09:00)
[2016-05-17] MEDS ORDERED: Metoprolol Tartrate TAB* 25 MG PO SCH (09:00)
[2016-05-17] MEDS: Metoprolol Tartrate TAB* 25 MG PO SCH ×2 (09:00→20:57)
[2016-05-17] MEDS: Folic Acid TAB* 1 MG PO SCH (09:00)
[2016-05-17] MEDS: Thiamine IV* 100 MG/ML 2 ML VIAL IV SCH (09:00)
--- NOTE | 2016-05-17 09:28 | RAD ---
Indication: Respiratory failure, intubation. Single frontal view of the chest performed at 0910 hours was reviewed. Comparison is made with previous exam dated really of the same day. ET tube is now at the level of T4. Nasogastric tube is below the diaphragm. Right pleural effusion and right basilar airspace disease is noted. Cardiomegaly is noted. IMPRESSION: ET TUBE IN APPROPRIATE LOCATION ABOVE THE SHIVA AT THE LEVEL OF T4. RIGHT LOWER LOBE INFILTRATE PERSISTS.
--- NOTE | 2016-05-17 09:31 | RAD ---
Indication: Respiratory failure, hypoxia. Single frontal view of the chest performed at 0815 hours was reviewed. Comparison is made with previous exam dated May 16, 2016. Cardiomegaly. Right pleural effusion and right basilar airspace disease is noted. Left lung field is clear. IMPRESSION: DEVELOPING RIGHT BASILAR INFILTRATE WITH RIGHT PLEURAL EFFUSION OR RIGHT LOWER LOBE ATELECTASIS. CARDIOMEGALY IS NOTED. LEFT LUNG FIELD IS CLEAR.
[2016-05-17] MEDS ORDERED: ACETYLCYSTEINE IVPB ONE (10:30)
[2016-05-17] MEDS ORDERED: Lidocain 1% EPI 1:100,000 * 30 ML MDV ONE (16:16)
[2016-05-17] MEDS: Chlorhexidine MOUTHWASH 0.12%* 15 ML UDC TOPICAL SCH ×2 (16:30→20:54)
--- NOTE | 2016-05-17 16:39 | CONS ---
CRITICAL CARE CONSULTATION REPORT: DATE OF CONSULT: 05/17/16 REASON FOR CONSULT: Progressive hypoxemic respiratory failure with lobar atelectasis in the right l valerie. HISTORY OF PRESENT ILLNESS: Mr. Gusman is a 46-year-old white male with a history of alcohol abuse, alcoholic cardiomyopathy, hypertension, prior CVA, and peripheral vascular disease, who was admitted to the hospital on 05/15/16, with increasing peripheral edema and depressed mentation. Since admis feng to the hospital, the patient has had a cardiac ultrasound, which revealed LVH and advanced righ t-sided heart failure with pulmonary hypertension. The patient was placed on a sedative protocol fo r anticipated alcohol withdrawal and subsequently developed progressive hypoxemia for which he was t ransferred to the intensive care unit. Chest x-ray on the morning of May 16 showed lobar atel ectasis involving the right middle and right lower lobes and because the patient was on 100% oxygen with borderline arterial oxygenation, endotracheal intubation was performed. Postprocedural x-ray r evealed persistent atelectasis in the right lung, so bronchoscopy was subsequently performed through the endotracheal tube. Copious amounts of mucoid secretions were aspirated from the right lung dur ing the procedure and the airways were cleared to the fourth order bronchi, and postprocedural chest x-ray is pending. The patient is currently maintained on mechanical ventilation and propofol anest hesia. MEDICATIONS: Ongoing meds include: 1. Metronidazole 500 mg q.8 hours. 2. Thiamine 100 mg IV daily. 3. Metoprolol 25 mg twice daily. 4. Lactulose 30 mL three times daily. 5. Folic acid 1 mg daily. REVIEW OF SYSTEMS: Unobtainable. PHYSICAL EXAM: The patient was unresponsive on propofol sedation. Vital Signs: Temp 98.8, blood pr essure 90/60, pulse rate 112 and regular, respiratory rate 18, O2 sat 98% with an FiO2 of 50%. HEEN T: Pupils were in midposition and reactive. Neck was supple without masses. Lungs with diminished breath sounds on the right, otherwise no wheezes or crackles. Abdomen was not distended. Extremiti es were warm and without cyanosis. There was 1+ peripheral edema. DIAGNOSTIC STUDIES/LAB DATA: Labs on the day of consultation showed a white count of 12.9, hemoglob in of 11.8, platelet count of 187K. Potassium was 3.0, chloride 94, bicarb 43, creatinine was 0.48, magnesium was 1.8, bilirubin was 1.7, alk phos 215, and albumin of 2.6. Chest x-ray was as described and most recent EKG on May 16 showed a sinus tachycardia with a r ight bundle branch block. IMPRESSION: Major problem at this point is the patient's inability to protect the airway from mouth secretions leading to inspissated secretions and postobstructive atelectasis. Source of the right- sided heart failure is unclear, but the patient could have periods of hypoxia at home from obstructi ve sleep apnea or orthodeoxia leading to pulmonary hypertension. Persistent tachycardia despite cor recting hypoxemia suggests either ongoing alcohol withdrawal or alcoholic cardiomyopathy. Sepsis sow s not appear to be an issue here. MANAGEMENT PLAN: Bronchoscopy as needed to keep airways clear and lighten sedation when possible to remove the patient from mechanical ventilation. We will maintain adequate hydration given the righ t ventricular dysfunction. The patient's brother is at the bedside and is aware of the current situ ation and the management plan. CRITICAL CARE TIME: 70 minutes. [id number]/[facility] #: [id number]
--- NOTE | 2016-05-17 17:14 | RAD ---
Indication: Lobar atelectasis in the right lower lobe. Single frontal view of the chest performed at 1645 hours was reviewed. Comparison is made with previous exam dated earlier the same day. No mediastinal shift is noted. Cardiomegaly is present. Previously identified right lower lobe atelectasis is improved. Left lung field is clear. IMPRESSION: Improving right lower lobe atelectasis.
[2016-05-17] MEDS: Acetylcysteine INHALATION SOL* 200 MG/ML NEB.SOLN 10 ML INH SCH (17:38)
[2016-05-17] MEDS: Lisinopril TAB* 5 MG PO SCH (20:05)
[2016-05-17] MEDS: Multivitamins/Minerals TAB PO SCH (20:05)
[2016-05-17] MEDS ORDERED: Nicotine Patch Removal NOTE PATCH OFF SCH (21:00)
[2016-05-17] MEDS: Propofol* 100 ML IV SCH (21:26)
--- NOTE | 2016-05-17 21:27 | PRO ---
PROCEDURE NOTE: DATE OF PROCEDURE: 05/17/16 - ROOM #ICU-02 PROCEDURE: Endotracheal intubation. The patient is a 46-year-old white male who is hospitalized for delirium tremens and heart failure who developed progressive hypoxemia and a chest x-ray showing atelectasis of the right middle and lower lobe, probably due to retained secretions. Because of inability to maintain oxygen saturations and inability to clear secretions, endotracheal intubation was performed under videoscopic control. The patient was first sedated with 200 mg fentanyl IV and 20 mg of etomidate IV and subsequently, a 7.5-Tamazight endotracheal tube was inserted into the trachea under videoscopic control. Tracheal placement was confirmed by exhaled CO2 analysis and postprocedure chest x-ray verified appropriate tube position in the trachea. The patient tolerated the procedure well and there were no apparent adverse consequences. [id number] #: [id number] MTDD
--- NOTE | 2016-05-17 21:44 | PRO ---
PROCEDURE NOTE: DATE OF PROCEDURE: 05/17/16 - ROOM #ICU-02 PROCEDURE: Fiberoptic bronchoscopy. This patient is a 46-year-old white male, who was admitted to the hospital with delirium tremens and heart failure, who required intubation for progressive hypoxemia and right middle and right lower lobe collapse due to retained secretions. Postintubation chest x-ray continued to show persistent lobar atelectasis in the right lung, so a bronchoscopy was performed through the endotracheal tube at the bedside. The patient was sedated with propofol during the procedure and the right lung was entered with a bronchoscope and cleared of mucoid secretions to the 4th order airway. There were no adverse consequences during the procedure and a postprocedural chest x-ray has been ordered. [id number] #: [id number] [facility]
[2016-05-17] MEDS ORDERED: Vancomycin(*) 1,250 MG in NS 0.9% 250 ML* 250 ML IVPB ONE (22:30)
[2016-05-17] MEDS: Acetaminophen TAB* 325 MG PO PRN (22:39)
[2016-05-17] MEDS ORDERED: Vancomycin per Pharmacy* NOTE FOLLOW UP PRN (22:41)
[2016-05-17 23:18] LABS: Budding Yeast Present (Absent); Urine Bacteria Absent (Absent); Urine Bilirubin Negative (Negative); Urine Glucose Negative (Negative); Urine Nitrite Negative (Negative)
[2016-05-18] MEDS ORDERED: Piperac/Tazob 3.375 gm in NS* 3.375 GM/100 ML BAG IVPB ONE
[2016-05-18] MEDS: Chlorhexidine MOUTHWASH 0.12%* 15 ML UDC TOPICAL SCH ×6 (00:26→19:36)
[2016-05-18] MEDS: Acetaminophen TAB* 325 MG PO PRN ×2 (02:45→21:54)
[2016-05-18] MEDS: Acetylcysteine INHALATION SOL* 200 MG/ML NEB.SOLN 10 ML INH SCH ×2 (03:43→10:40)
[2016-05-18] MEDS: Piperac/Tazob 3.375 gm in NS* 3.375 GM/100 ML BAG IVPB SCH ×3 (03:46→19:36)
[2016-05-18] MEDS: Propofol* 100 ML IV SCH ×4 (03:52→20:03)
[2016-05-18] MEDS ORDERED: NS 0.9% 250 ML* 250 ML IV ONE (05:07)
[2016-05-18] MEDS ORDERED: NS 0.9% 1000 ML* 1,000 ML IV SCH (05:15)
[2016-05-18 05:16] LABS: Hematocrit 37 % (42-52); Mean Corpuscular HGB Conc 30 g/dl (31-36); Mean Corpuscular Hemoglobin 29 pg (27-31); Mean Corpuscular Volume 96 fL (80-94); Mean Platelet Volume 8 um3 (7.4-10.4); Red Blood Count 3.85 10^6/ul (4.0-5.4); White Blood Count 15.3 10^3/ul (3.5-10.8)
[2016-05-18] MEDS: Vancomycin(*) 1,250 MG in NS 0.9% 250 ML* 250 ML IVPB SCH ×4 (05:16→23:18)
[2016-05-18 05:18] LABS: Comments Flag Yes; Red Cell Distribution Width 23 % (10.5-15)
[2016-05-18 05:34] LABS: BUN/Creatinine Ratio 9.1 (8-20); Calcium 8.3 mg/dL (8.6-10.3); EGFR African American 264.5 (>60); EGFR Non-African American 205.7 (>60); Potassium 2.9 mmol/L (3.5-5.0)
--- NOTE | 2016-05-18 08:40 | RAD ---
Indication: Hypoxia. Single frontal view of the chest performed at 2310 hours was reviewed. Comparison is made with previous exam dated earlier the same day. ET tube and nasogastric tube are unchanged in position. Cardiomegaly is persistent. Increased density in the right base may represent atelectasis. Right midlung zone atelectasis is improved. Right-sided infiltrates may be slightly improved since previous exam. IMPRESSION: RECURRENT RIGHT BASILAR ATELECTASIS. RIGHT MIDLUNG ZONE ATELECTASIS MAY BE IMPROVED. PERSISTENT INFILTRATES MAY BE MINIMALLY IMPROVED SINCE PREVIOUS EXAM
[2016-05-18] MEDS: Metoprolol Tartrate TAB* 25 MG PO SCH ×2 (09:00→21:48)
--- NOTE | 2016-05-18 09:28 | RAD ---
Indication: Lobar atelectasis in the right lower lobe. Single frontal view of the chest performed at 0615 hours was reviewed. Comparison is made with previous exam dated earlier the same day. Cardiomegaly is noted. Left lung field is clear. Patchy infiltrates in the right lung field appear to be slightly improved since exam done May 17, 2016. Previously identified right lower lobe atelectasis is slightly improved. There is likely a right pleural effusion noted. IMPRESSION: THERE APPEARS TO BE IMPROVED INFILTRATE IN THE RIGHT UPPER LOBE WITH LIKELY IMPROVED RIGHT BASILAR ATELECTASIS. THERE IS LIKELY A RIGHT PLEURAL EFFUSION NOTED.
[2016-05-18] MEDS: Thiamine IV* 100 MG/ML 2 ML VIAL IV SCH (10:00)
[2016-05-18] MEDS ORDERED: LORazepam INJ* 2 MG/ML 1 ML VIAL IV PUSH ONE (10:32)
[2016-05-18] MEDS ORDERED: Magnesium Sulf 4 GM/100 ML IV* 4,000 MG/100 ML BAG IVPB ONE (10:33)
[2016-05-18] MEDS: Aspirin EC Low Dose* 81 MG TAB.EC PO SCH (10:47)
[2016-05-18] MEDS: Albumin Human 5%* 250 ML BTL IV ONE ×2 (10:47→11:38)
[2016-05-18] MEDS: Folic Acid TAB* 1 MG PO SCH (10:47)
[2016-05-18] MEDS: Potassium Chloride LIQUID* 20 MEQ PACKET PO SCH ×3 (10:50→17:16)
[2016-05-18] MEDS ORDERED: Acetaminophen IV 1GM/100ML * 1,000 MG in PREMIX* 0 ML IVPB ONE (11:18)
[2016-05-18] MEDS ORDERED: Albumin Human 5%* 250 ML BTL IV ONE (11:39)
[2016-05-18] MEDS ORDERED: Acetaminophen IV 1GM/100ML * 100 ML ONE (12:02)
--- NOTE | 2016-05-18 12:15 | PN ---
Progress Note - Progress Note Note: CRITICAL CARE MEDICINE Date: 05/18/16 Time: 1000 SUBJECTIVE: Patient seen and examined. PHYSICAL EXAM: Vital Signs: Reviewed. febrile, tachy Neurologic: sedated but overbreathing and responsive to stimuli HEENT: pupils equal. Sclera anicteric. Trachea midline. Cardiovascular: tachy, S1 S2 Respiratory: coarse, mildly dec on R otherwise clear Abdomen: Soft, nt. No r/g/r. Extremities: Warm. mild per edema LABS: Reviewed. IMAGING: Reviewed. MEDICATIONS: Reviewed. ASSESSMENT: 46 M Acute hypoxic and hypercarbic resp failure Aspiration pneumonitis Acute cor pulmonale Alcoholic cardiomyopathy Acute etoh withdrawal/DTs PLAN: Neurologic: sedated with propfol yet high CLOVIS response still. Given ativan this am. May need to try precedex. Febrile with this and all seemingly more likely from DTs then infectious but on abx already all the same. May have a difficulty course with Dts requiring ppv and underlying cardiomyopathy and cor pulmonale. High morbidity and mortality here. Cardiovascular: perfusing but high metabolic demands. Need to bolus intravascular volume. try to alleviate tachycardia and support volume needed for right heart. Respiratory: again may not tolerate ppv well, but improved R lung post aspiration and maintained on pcv for now. Gastrointestinal: ogt, feeds later today and f/u needs Renal/Metabolic: replete lytes and follow fx. vitamin suppl Infectious Disease: on zosyn and vanco and follow up cx Hematology: holding. hsq Endocrine: stable at present. Musculoskeletal: bedrest currently Psych/Social: will need to update family Supportive and preventative care as ordered. SUP: ppi VTE prophylaxis: heparin Butcher catheter given critical illness, monitoring needs for accurate assessment of KAELYN and KDIGO criteria for critically ill patients and to avoid potential harms of urinary retention, skin breakdown/ulcers. Disposition: ICU Code Status: Full Critical Care Time: 45min Ganesh Barrett DO
[2016-05-18] MEDS ORDERED: Vancomycin Trough Check NOTE FOLLOW UP ONE (17:00)
[2016-05-19] MEDS: Chlorhexidine MOUTHWASH 0.12%* 15 ML UDC TOPICAL SCH ×6 (00:22→19:40)
[2016-05-19] MEDS: Propofol* 100 ML IV SCH ×4 (01:27→23:36)
[2016-05-19] MEDS: Piperac/Tazob 3.375 gm in NS* 3.375 GM/100 ML BAG IVPB SCH ×3 (03:44→19:43)
[2016-05-19] MEDS: Vancomycin(*) 1,250 MG in NS 0.9% 250 ML* 250 ML IVPB SCH ×4 (05:17→22:23)
[2016-05-19 06:46] LABS: Hematocrit 37 % (42-52); Mean Corpuscular HGB Conc 30 g/dl (31-36); Mean Corpuscular Hemoglobin 29 pg (27-31); Mean Corpuscular Volume 96 fL (80-94); Mean Platelet Volume 8 um3 (7.4-10.4); Red Blood Count 3.81 10^6/ul (4.0-5.4); Red Cell Distribution Width 24 % (10.5-15); White Blood Count 10.9 10^3/ul (3.5-10.8)
[2016-05-19 06:58] LABS: Albumin 2.6 g/dL (3.2-5.2); BUN/Creatinine Ratio 11.9 (8-20); Calcium 8.7 mg/dL (8.6-10.3); EGFR African American 279.1 (>60); Globulin 2.5 g/dL (2-4); Magnesium 2.3 mg/dL (1.9-2.7); Potassium 3.7 mmol/L (3.5-5.0); Total Bilirubin 3.7 mg/dL (0.2-1.0); Total Protein 5.1 g/dL (6.4-8.9)
[2016-05-19 07:06] LABS: Comments Flag Yes
[2016-05-19 07:07] LABS: Add Diff/Slide Review? Slide Review Added
[2016-05-19 07:28] LABS: Eosinophils % 2 % (0-6); Immature Granulocytes 4 % (0-9); Neutrophil % 77 % (38-83); Target Cells 1+
[2016-05-19 07:29] LABS: Macrocytosis 1+
[2016-05-19] MEDS: Aspirin EC Low Dose* 81 MG TAB.EC PO SCH (09:24)
[2016-05-19] MEDS: Thiamine IV* 100 MG/ML 2 ML VIAL IV SCH (09:24)
[2016-05-19] MEDS: Folic Acid TAB* 1 MG PO SCH (09:24)
[2016-05-19] MEDS: Metoprolol Tartrate TAB* 25 MG PO SCH ×2 (09:25→20:04)
[2016-05-19 09:49] LABS: Direct Bilirubin 2.6 mg/dL (0.03-0.18)
[2016-05-19] MEDS ORDERED: Potassium Phosphate IV* 30 MMOLE in NS 0.9% 250 ML* 250 ML IVPB ONE (10:30)
--- NOTE | 2016-05-19 11:41 | PN ---
Progress Note - Progress Note Note: CRITICAL CARE MEDICINE Date: 05/19/16 Time: 940 SUBJECTIVE: Patient seen and examined. PHYSICAL EXAM: Vital Signs: Reviewed. febrile curve down, tachy but hr down a little. Uout low but holding Neurologic: sedated but overbreathing and responsive to stimuli HEENT: pupils equal. Sclera anicteric. Trachea midline. Cardiovascular: tachy, S1 S2 Respiratory: coarse, dec bl Abdomen: Soft, nt. No ruq pain Extremities: Warm. +edema LABS: Reviewed. IMAGING: Reviewed. MEDICATIONS: Reviewed. ASSESSMENT: 46 M Acute hypoxic and hypercarbic resp failure Aspiration pneumonitis Acute cor pulmonale Alcoholic cardiomyopathy Acute etoh withdrawal/DTs PLAN: Neurologic: continued propofol as leta better controlled. again consider precedex if not able to hold. would slowly lower propofol today and not hold for sedation vacation as this is DT therapy. Cardiovascular: perfusing and demands down some. will likely remain tachy from cor pulmonale and at high mortal risk. Keep fluids as is today and likely need to change course with this tomorrow. Respiratory: Slow wean FIO2 but not stable for sbt any time soon. cannot tolerate aprv due to cor pulmonale Gastrointestinal: lfts up, more nutrition, sympathetic and liver dysfx. hold tf and check RUQ US given numbers and fever but not anticipating needs there. resume tf post. sup Renal/Metabolic: replete lytes and follow fx. vitamin suppl Infectious Disease: on zosyn and vanco continued Hematology: holding. hsq Endocrine: stable at present. Musculoskeletal: bedrest currently given acuity Psych/Social: pts brothers and mother updated Supportive and preventative care as ordered. SUP: ppi VTE prophylaxis: heparin Butcher catheter given critical illness, monitoring needs for accurate assessment of AKELYN and KDIGO criteria for critically ill patients and to avoid potential harms of urinary retention, skin breakdown/ulcers. Disposition: ICU Code Status: Full Critical Care Time: 40min Ganesh Barrett DO
[2016-05-19] MEDS: Lansoprazole SOLUTAB* 30 MG G TUBE SCH (12:27)
--- NOTE | 2016-05-19 14:22 | RAD ---
INDICATION: Increasing liver function tests and fever. COMPARISON: Correlation is made with a prior right upper quadrant ultrasound from March 03, [address] angiogram of the chest from May 15, 2016. TECHNIQUE: Multiple real-time images of the right upper quadrant were obtained. FINDINGS: There are multiple gallstones present. There is gallbladder wall thickening and pericholecystic fluid. There is also a small amount of ascites. No intra or extrahepatic ductal distention is present. The common bile duct measured 0.5 cm in diameter. The liver is mildly enlarged and increased in echogenicity consistent with fatty infiltration as seen on the prior CT study. No focal hepatic abnormality is seen. The pancreas is partially inferior by overlying bowel gas. No ductal distention is seen. The right kidney is normal in size without evidence for hydronephrosis. IMPRESSION: 1. SMALL AMOUNT OF ASCITES. 2. CHOLELITHIASIS, IN ADDITION, THERE IS GALLBLADDER WALL THICKENING AND PERICHOLECYSTIC FLUID SUGGESTING THE POSSIBILITY OF ACUTE CHOLECYSTITIS ALTERNATIVELY THE GALLBLADDER WALL THICKENING MAY BE SECONDARY TO THE ASCITES. 3. MILD HEPATOMEGALY AND HEPATIC STEATOSIS.
[2016-05-19] MEDS: Heparin VIAL(*) 5000 UNITS/ML VIAL (FIVE THOUSAND) SUBCUT SCH ×2 (14:24→22:23)
[2016-05-19] MEDS ORDERED: Phytonadione Oral Solution* 5 MG/25 ML UDC PO ONE (17:00)
[2016-05-19] MEDS: LORazepam INJ* 2 MG/ML 1 ML VIAL IV PUSH PRN (19:39)
[2016-05-19] MEDS: Acetaminophen TAB* 325 MG PO PRN (19:39)
[2016-05-20] MEDS: Chlorhexidine MOUTHWASH 0.12%* 15 ML UDC TOPICAL SCH ×6 (01:16→21:05)
[2016-05-20] MEDS: Piperac/Tazob 3.375 gm in NS* 3.375 GM/100 ML BAG IVPB SCH ×3 (04:23→20:12)
[2016-05-20] MEDS: Vancomycin(*) 1,250 MG in NS 0.9% 250 ML* 250 ML IVPB SCH ×4 (04:25→22:35)
[2016-05-20] MEDS: Propofol* 100 ML IV SCH ×3 (04:27→20:12)
[2016-05-20 05:45] LABS: Hematocrit 35 % (42-52); Hemoglobin 10.4 g/dl (14.0-18.0); Mean Corpuscular HGB Conc 29 g/dl (31-36); Mean Corpuscular Hemoglobin 29 pg (27-31); Mean Corpuscular Volume 97 fL (80-94); Mean Platelet Volume 8 um3 (7.4-10.4); Red Blood Count 3.63 10^6/ul (4.0-5.4); White Blood Count 8.9 10^3/ul (3.5-10.8)
[2016-05-20] MEDS: Heparin VIAL(*) 5000 UNITS/ML VIAL (FIVE THOUSAND) SUBCUT SCH ×3 (05:46→22:35)
[2016-05-20 05:50] LABS: Comments Flag Yes; Red Cell Distribution Width 23 % (10.5-15)
[2016-05-20 06:08] LABS: Albumin 2.2 g/dL (3.2-5.2); BUN/Creatinine Ratio 21.4 (8-20); Calcium 7.8 mg/dL (8.6-10.3); Direct Bilirubin 2.6 mg/dL (0.03-0.18); EGFR African American 279.1 (>60); Globulin 2.4 g/dL (2-4); Magnesium 1.8 mg/dL (1.9-2.7); Potassium 3.8 mmol/L (3.5-5.0); Total Bilirubin 3.6 mg/dL (0.2-1.0); Total Protein 4.6 g/dL (6.4-8.9)
[2016-05-20] MEDS ORDERED: Magnesium Sulfate 2 GM IV* 2 GM/50 ML BAG IVPB ONE (09:27)
[2016-05-20] MEDS ORDERED: NS IVPB ONE (09:27)
[2016-05-20] MEDS ORDERED: POTASSIUM PHOSPHATE IVPB ONE (09:27)
[2016-05-20] MEDS: Potassium & Sodium Phos 250MG* = 1 PACKET G TUBE SCH ×3 (11:13→22:45)
[2016-05-20] MEDS: Aspirin EC Low Dose* 81 MG TAB.EC PO SCH (11:14)
[2016-05-20] MEDS: Folic Acid TAB* 1 MG PO SCH (11:15)
[2016-05-20] MEDS: Lansoprazole SOLUTAB* 30 MG G TUBE SCH (11:15)
[2016-05-20] MEDS: Metoprolol Tartrate TAB* 25 MG PO SCH ×3 (11:15→22:51)
[2016-05-20] MEDS: Thiamine IV* 100 MG/ML 2 ML VIAL IV SCH (11:15)
--- NOTE | 2016-05-20 11:31 | PN ---
Progress Note - Progress Note Note: CRITICAL CARE MEDICINE Date: 05/20/16 Time: 935 SUBJECTIVE: Patient seen and examined. PHYSICAL EXAM: Vital Signs: Reviewed. febrile again overnight. Hemodynamics about same. Uout low but holding Neurologic: sedated and still awakens to stimuli HEENT: pupils equal. Sclera icteric. Trachea midline. Cardiovascular: distant, tachy still, S1 S2 Respiratory: coarse, dec bl Abdomen: Soft, nt. No ruq pain nor warmth; anasarca Extremities: Warm. +edema LABS: Reviewed. IMAGING: Reviewed. MEDICATIONS: Reviewed. ASSESSMENT: 46 M Acute hypoxic and hypercarbic resp failure Aspiration pneumonitis Acute cor pulmonale Alcoholic cardiomyopathy Acute etoh withdrawal/DTs PLAN: Neurologic: continued propofol with control of DTs. can decrease dose today and see if any dynamic changes. Still question if he may be better with trial of precedex although has been holding his course. on bb already. maintain leta control. Cardiovascular: perfusing. Intravasc volume holding with his cor pulmonaly, and interstially optiovolemic with gross overload. Will be monumental for him to mobilize, certainly not much prior to liberation anyway. Hold off on further fluids as able. Still no benefit seen for inotropes. long course. Respiratory: Slow wean FIO2. Try inc peep again to get down on FiO2. will not tolerate high peep. Gastrointestinal: lfts stabilized. Not surprising pt with gb wall thickening and ascites. Still don't see a good rational for per drain need with his ongoing msof, and much of his lfts stsabilizing more post etoh and congestive hepatopathy rather then acute leonor, certainly as fever seems more driven by DTs and wbc has come down. He continues on abx and may need to per drain ultimately if he cannot maintain, but may be ominous sign if we need to go those route as he already has ailments to thrive with onging msof and high morbdiity and mortality. Continued nutrition and f/u clinically. Renal/Metabolic: replete lytes and follow fx as cr holding but large mismatch from I to O. Infectious Disease: on zosyn and vanco continued Hematology: holding. hsq Endocrine: stable at present. Musculoskeletal: bedrest currently given acuity which is a major detriment, but with his status oob may be quite harmful Psych/Social: pts brothers and mother updated yesterday Supportive and preventative care as ordered. SUP: ppi VTE prophylaxis: heparin Butcher catheter given critical illness, monitoring needs for accurate assessment of KAELYN and KDIGO criteria for critically ill patients and to avoid potential harms of urinary retention, skin breakdown/ulcers. Disposition: ICU Code Status: Full Critical Care Time: 40min Ganesh Barrett DO
[2016-05-20] MEDS: Acetaminophen TAB* 325 MG PO PRN (16:57)
[2016-05-20] MEDS: LORazepam INJ* 2 MG/ML 1 ML VIAL IV PUSH PRN ×2 (16:59→23:20)
[2016-05-20] MEDS ORDERED: Furosemide IV* 10 MG/ML 10 ML VIAL (100 MG) IV ONE (18:26)
--- NOTE | 2016-05-20 19:02 | RAD ---
INDICATION: Intubated and hypoxic. COMPARISON: Comparison is made with a prior chest x-ray study from [facility] 2016. TECHNIQUE: A portable view of the chest was obtained. FINDINGS: The heart is moderately enlarged and unchanged from the prior exam. There is an endotracheal tube which projects over the midline and appears unchanged in position. There is a nasogastric tube which has been pulled back. The catheter tip projects over the lower mediastinum likely within the distal esophagus. There is mild prominence of the interstitial markings. There is a small right pleural effusion and bibasilar infiltrates. There is no significant change from the prior study. There is a faint right upper lobe infiltrate which is also unchanged. IMPRESSION: 1. NASOGASTRIC TUBE PROJECTS OVER THE REGION OF THE DISTAL ESOPHAGUS. 2. SMALL RIGHT PLEURAL EFFUSION, RIGHT UPPER LOBE AND BIBASILAR INFILTRATES, UNCHANGED.
--- NOTE | 2016-05-20 21:16 | RAD ---
INDICATION: Orogastric tube repositioning. COMPARISON: Comparison is made with a prior study from approximately 2 hours earlier. TECHNIQUE: A portable view of the chest was obtained. FINDINGS: The heart is moderately enlarged and unchanged. There is mild prominence of the interstitial markings. There is a small patchy infiltrate in the right upper lobe and infiltrates at both lung bases. There is a small right pleural effusion. There is no significant change from the prior exam. There is an oral gastric tube which projects adjacent to the midline likely in the distal esophagus adjacent to the gastroesophageal junction. This has moved distally approximately 3 cm from the prior study. IMPRESSION: THE OROGASTRIC TUBE PROJECTS TO THE LEFT OF THE MIDLINE LIKELY IN THE DISTAL ESOPHAGUS ADJACENT TO THE GASTROESOPHAGEAL JUNCTION.
--- NOTE | 2016-05-20 22:54 | RAD ---
INDICATION: Recheck orogastric tube placement. COMPARISON: Comparison is made with a prior study from approximately one hour earlier. TECHNIQUE: A portable view of the chest was obtained. FINDINGS: The heart is moderately enlarged and unchanged. There is a orogastric tube which demonstrates normal course. The catheter tip projects in the left upper quadrant in the region of the gastroesophageal junction. This has been advanced slightly from the prior study. There is an endotracheal tube which projects over the midline in normal position. There is a small right pleural effusion and bilateral infiltrates which appear unchanged. IMPRESSION: OROGASTRIC TUBE IN THE REGION OF THE GASTROESOPHAGEAL JUNCTION.
[2016-05-21] MEDS: Chlorhexidine MOUTHWASH 0.12%* 15 ML UDC TOPICAL SCH ×7 (00:25→23:29)
[2016-05-21] MEDS: Piperac/Tazob 3.375 gm in NS* 3.375 GM/100 ML BAG IVPB SCH ×3 (04:04→21:50)
[2016-05-21] MEDS: Vancomycin(*) 1,250 MG in NS 0.9% 250 ML* 250 ML IVPB SCH ×2 (05:03→10:30)
[2016-05-21 05:53] LABS: Hematocrit 37 % (42-52); Hemoglobin 10.7 g/dl (14.0-18.0); Mean Corpuscular HGB Conc 29 g/dl (31-36); Mean Corpuscular Hemoglobin 28 pg (27-31); Mean Corpuscular Volume 97 fL (80-94); Mean Platelet Volume 9 um3 (7.4-10.4); Red Blood Count 3.76 10^6/ul (4.0-5.4); Red Cell Distribution Width 22 % (10.5-15); White Blood Count 10.5 10^3/ul (3.5-10.8)
[2016-05-21] MEDS: Heparin VIAL(*) 5000 UNITS/ML VIAL (FIVE THOUSAND) SUBCUT SCH ×3 (05:55→21:52)
[2016-05-21] MEDS: Propofol* 100 ML IV SCH (05:56)
[2016-05-21 06:07] LABS: Albumin 2.4 g/dL (3.2-5.2); BUN/Creatinine Ratio 19.6 (8-20); Calcium 8.3 mg/dL (8.6-10.3); EGFR African American 251.3 (>60); EGFR Non-African American 195.4 (>60); Globulin 2.9 g/dL (2-4); Magnesium 2.1 mg/dL (1.9-2.7); Phosphorus 2.8 mg/dL (2.5-5.0); Potassium 3.8 mmol/L (3.5-5.0); Total Bilirubin 3.7 mg/dL (0.2-1.0); Total Protein 5.3 g/dL (6.4-8.9)
[2016-05-21 06:08] LABS: Comments Flag Yes
[2016-05-21] MEDS: LORazepam INJ* 2 MG/ML 1 ML VIAL IV PUSH PRN (06:29)
[2016-05-21] MEDS: Lansoprazole SOLUTAB* 30 MG G TUBE SCH (09:43)
[2016-05-21] MEDS: Potassium & Sodium Phos 250MG* = 1 PACKET G TUBE SCH ×3 (09:43→21:52)
[2016-05-21] MEDS: Thiamine IV* 100 MG/ML 2 ML VIAL IV SCH (09:43)
[2016-05-21] MEDS: Folic Acid TAB* 1 MG PO SCH (09:43)
[2016-05-21] MEDS: Aspirin EC Low Dose* 81 MG TAB.EC PO SCH (09:44)
[2016-05-21] MEDS: Metoprolol Tartrate TAB* 25 MG PO SCH ×2 (10:14→21:52)
--- NOTE | 2016-05-21 12:10 | PN ---
Progress Note - Progress Note Note: CRITICAL CARE MEDICINE Date: 05/21/16 Time: 1100 SUBJECTIVE: Patient seen and examined. PHYSICAL EXAM: Vital Signs: Reviewed. febrile again overnight. Hemodynamics about same. Uout holding Neurologic: sedated and still awakens to stimuli HEENT: pupils equal. Sclera icteric. Trachea midline. Cardiovascular: distant, tachy still, S1 S2 Respiratory: coarse, more dec bl Abdomen: Soft, nt. No ruq pain nor warmth; anasarca Extremities: Warm. +edema; skin changes LABS: Reviewed. IMAGING: Reviewed. MEDICATIONS: Reviewed. ASSESSMENT: 46 M Acute hypoxic and hypercarbic resp failure Aspiration pneumonitis Acute cor pulmonale Alcoholic cardiomyopathy Acute etoh withdrawal/DTs Hepatic encephalopahy Anasarca Malnutition mod degree PLAN: Neurologic: still remains with high leta. will try precedex today to see if any better advantage since unable to quell his sympathetic overload; at same time do not want to inhibit CO needs. Cardiovascular: perfusing. Intravasc volume up with his cor pulmonary but with more lung water and effusion. Not able to promote a flow phase yet; will attempt lasix later today to see if we can foster such a phase while maintaining preload with high airway pressure demands. Not much room to move. Could consider inotropic tx if still unable to mobilize for what its worth with cor pulmonale. Respiratory: FIO2 back up. Need to mobilize fluid. Airway pressures already to 30s. At risk for lung injury and cannot tolerate high intrathoracic pressures. gentle pursuits. Gastrointestinal: lfts stable. No change in GB exam. explained to family in reagrds to this and cbd size etc, as well as current abx. continues with enteral nutrition. Renal/Metabolic: replete lytes. lasix Infectious Disease: on zosyn and vanco continued for anticipated 7 days Hematology: holding. hsq Endocrine: stable at present. Musculoskeletal: bedrest currently Psych/Social: pts brother and mother updated today Supportive and preventative care as ordered. SUP: ppi VTE prophylaxis: heparin Butcher catheter given critical illness, monitoring needs for accurate assessment of KAELYN and KDIGO criteria for critically ill patients and to avoid potential harms of urinary retention, skin breakdown/ulcers. Disposition: ICU; prognosis still poor Code Status: Full Critical Care Time: 35min Ganesh Barrett DO
[2016-05-21] MEDS: Dexmedetomidine* 50 ML IVPB SCH ×3 (12:41→23:29)
[2016-05-21] MEDS ORDERED: Furosemide IV* 10 MG/ML 10 ML VIAL (100 MG) IV ONE (15:01)
[2016-05-21] MEDS: Vancomycin(*) 1,000 MG in NS 0.9% 250 ML* 250 ML IVPB SCH ×2 (16:00→22:21)
[2016-05-21] MEDS ORDERED: Propofol* 100 ML ONE (19:43)
[2016-05-21] MEDS ORDERED: Etomidate* 2 MG/ML 20 ML VIAL (40 MG) ONE (19:46)
[2016-05-21] MEDS ORDERED: Midazolam* 1 MG/ML 10 ML VIAL (10 MG) ONE (19:46)
--- NOTE | 2016-05-21 20:45 | RAD ---
INDICATION: Status post intubation. COMPARISON: Comparison is made with a prior chest x-ray study from May 20, 2016. TECHNIQUE: A portable view of the chest was obtained. FINDINGS: There is an endotracheal tube which projects over the midline. There is an orogastric tube which projects below the left hemidiaphragm off the film. The heart is moderately enlarged and unchanged. There is a patchy right upper lobe infiltrate and bibasilar infiltrates and small bilateral pleural effusions which appear unchanged. IMPRESSION: BILATERAL INFILTRATES AND SMALL BILATERAL PLEURAL EFFUSIONS, UNCHANGED.
[2016-05-21] MEDS: Acetaminophen TAB* 325 MG PO PRN (22:21)
[2016-05-22] MEDS: Chlorhexidine MOUTHWASH 0.12%* 15 ML UDC TOPICAL SCH ×5 (03:02→20:10)
[2016-05-22] MEDS: Acetaminophen TAB* 325 MG PO PRN ×3 (03:20→20:21)
[2016-05-22] MEDS: Vancomycin(*) 1,000 MG in NS 0.9% 250 ML* 250 ML IVPB SCH ×3 (04:17→20:10)
[2016-05-22] MEDS: Piperac/Tazob 3.375 gm in NS* 3.375 GM/100 ML BAG IVPB SCH ×3 (04:58→20:10)
[2016-05-22] MEDS: Heparin VIAL(*) 5000 UNITS/ML VIAL (FIVE THOUSAND) SUBCUT SCH ×3 (05:08→22:58)
[2016-05-22] MEDS: Folic Acid TAB* 1 MG PO SCH (08:07)
[2016-05-22] MEDS: Metoprolol Tartrate TAB* 25 MG PO SCH ×2 (08:07→20:10)
[2016-05-22] MEDS: Lansoprazole SOLUTAB* 30 MG G TUBE SCH (08:07)
[2016-05-22] MEDS: Aspirin EC Low Dose* 81 MG TAB.EC PO SCH (08:07)
[2016-05-22] MEDS: Thiamine IV* 100 MG/ML 2 ML VIAL IV SCH (08:08)
[2016-05-22] MEDS: Potassium & Sodium Phos 250MG* = 1 PACKET G TUBE SCH ×3 (08:09→20:11)
[2016-05-22 08:41] LABS: Hematocrit 36 % (42-52); Hemoglobin 10.5 g/dl (14.0-18.0); Mean Corpuscular HGB Conc 29 g/dl (31-36); Mean Corpuscular Hemoglobin 28 pg (27-31); Mean Corpuscular Volume 97 fL (80-94); Mean Platelet Volume 9 um3 (7.4-10.4); Red Blood Count 3.75 10^6/ul (4.0-5.4); Red Cell Distribution Width 23 % (10.5-15); White Blood Count 13.2 10^3/ul (3.5-10.8)
[2016-05-22 08:42] LABS: Add Diff/Slide Review? Slide Review Added; Comments Flag Yes
[2016-05-22 08:55] LABS: Albumin 2.4 g/dL (3.2-5.2); BUN/Creatinine Ratio 18.5 (8-20); Calcium 8.6 mg/dL (8.6-10.3); EGFR African American 168.6 (>60); EGFR Non-African American 131.1 (>60); Globulin 3.2 g/dL (2-4); Potassium 3.2 mmol/L (3.5-5.0); Total Bilirubin 2.7 mg/dL (0.2-1.0); Total Protein 5.6 g/dL (6.4-8.9)
[2016-05-22] MEDS ORDERED: Vancomycin Trough Check NOTE FOLLOW UP ONE (10:00)
[2016-05-22] MEDS ORDERED: Furosemide IV* 10 MG/ML 10 ML VIAL (100 MG) IV ONE (10:00)
[2016-05-22] MEDS: Dexmedetomidine* 50 ML IVPB SCH ×2 (10:32→16:12)
[2016-05-22] MEDS: Potassium Chloride LIQUID* 20 MEQ PACKET G TUBE SCH ×3 (10:32→20:11)
--- NOTE | 2016-05-22 11:19 | PN ---
Progress Note - Progress Note Note: CRITICAL CARE MEDICINE Date: 05/22/16 Time: 935 SUBJECTIVE: Patient seen and examined. Self extubated and re-intubated last pm. PHYSICAL EXAM: Vital Signs: Reviewed. febrile again overnight but Hemodynamics better. Uout well with lasix Neurologic: more awake and alert; following commands. HEENT: pupils equal. Sclera icteric. Trachea midline. Cardiovascular: distant, S1 S2 Respiratory: coarse, and dec; no rales Abdomen: Soft, nt. anasarca Extremities: Warm. +edema; skin changes LABS: Reviewed. IMAGING: Reviewed. MEDICATIONS: Reviewed. ASSESSMENT: 46 M Acute hypoxic and hypercarbic resp failure Aspiration pneumonitis Acute cor pulmonale Alcoholic cardiomyopathy Acute etoh withdrawal/DTs Hepatic encephalopahy Anasarca Malnutition mod degree PLAN: Neurologic: still remains with inc leta but somewhat better control; precedex seems to be holding him better and would continue. Hope he is attempting re- animation now. Cardiovascular: perfusing. Intravasc volume up and better with flow phase. promote with further lasix to find out his optivolemic state. Respiratory: FIO2 actually down. Hopefully helped with less lung water. mobilize. pcv. wean O2. Gastrointestinal: lfts stable to improving. Maintain course. adjusted tf. Renal/Metabolic: replete lytes. lasix Infectious Disease: on zosyn and vanco continued Hematology: holding. hsq Endocrine: stable at present. Musculoskeletal: bedrest currently due to acuity; hopefully chair position if improved tomorrow Psych/Social: will update family Supportive and preventative care as ordered. SUP: ppi VTE prophylaxis: heparin Butcher catheter given critical illness, monitoring needs for accurate assessment of KAELYN and KDIGO criteria for critically ill patients and to avoid potential harms of urinary retention, skin breakdown/ulcers. Disposition: ICU Code Status: Full Critical Care Time: 35min Ganesh Barrett DO
[2016-05-22] MEDS ORDERED: LORazepam INJ* 2 MG/ML 1 ML VIAL IV PUSH ONE (22:21)
[2016-05-22] MEDS: Propofol* 100 ML IV SCH (22:54)
[2016-05-23] MEDS: Chlorhexidine MOUTHWASH 0.12%* 15 ML UDC TOPICAL SCH ×6 (00:27→19:55)
[2016-05-23] MEDS: Dexmedetomidine* 50 ML IVPB SCH ×7 (00:28→22:41)
[2016-05-23] MEDS: Acetaminophen TAB* 325 MG PO PRN ×3 (02:54→15:22)
[2016-05-23] MEDS: Piperac/Tazob 3.375 gm in NS* 3.375 GM/100 ML BAG IVPB SCH ×3 (03:03→21:43)
[2016-05-23] MEDS: Vancomycin(*) 1,000 MG in NS 0.9% 250 ML* 250 ML IVPB SCH ×3 (03:03→19:55)
[2016-05-23] MEDS: Propofol* 100 ML IV SCH ×3 (04:08→22:33)
[2016-05-23] MEDS: Heparin VIAL(*) 5000 UNITS/ML VIAL (FIVE THOUSAND) SUBCUT SCH ×3 (05:39→21:53)
[2016-05-23 06:09] LABS: Hematocrit 37 % (42-52); Hemoglobin 10.5 g/dl (14.0-18.0); Mean Corpuscular HGB Conc 29 g/dl (31-36); Mean Corpuscular Hemoglobin 28 pg (27-31); Mean Corpuscular Volume 98 fL (80-94); Mean Platelet Volume 9 um3 (7.4-10.4); Red Blood Count 3.78 10^6/ul (4.0-5.4); Red Cell Distribution Width 23 % (10.5-15); White Blood Count 13.4 10^3/ul (3.5-10.8)
[2016-05-23 06:21] LABS: Comments Flag Yes
[2016-05-23 07:15] LABS: BUN/Creatinine Ratio 18.3 (8-20); Calcium 8.7 mg/dL (8.6-10.3); EGFR African American 152.3 (>60); EGFR Non-African American 118.4 (>60); Magnesium 2.2 mg/dL (1.9-2.7); Phosphorus 2.9 mg/dL (2.5-5.0); Potassium 3.3 mmol/L (3.5-5.0)
[2016-05-23] MEDS: Thiamine IV* 100 MG/ML 2 ML VIAL IV SCH (09:30)
[2016-05-23] MEDS: Potassium & Sodium Phos 250MG* = 1 PACKET G TUBE SCH ×3 (09:32→21:53)
[2016-05-23] MEDS: Potassium Chloride LIQUID* 20 MEQ PACKET G TUBE SCH (09:32)
[2016-05-23] MEDS: Metoprolol Tartrate TAB* 25 MG PO SCH ×2 (09:32→21:53)
[2016-05-23] MEDS: Folic Acid TAB* 1 MG PO SCH (09:32)
[2016-05-23] MEDS: Aspirin EC Low Dose* 81 MG TAB.EC PO SCH (09:32)
[2016-05-23] MEDS: Lansoprazole SOLUTAB* 30 MG G TUBE SCH (09:32)
[2016-05-23] MEDS: Spironolactone TAB* 25 MG G TUBE SCH (10:26)
[2016-05-23] MEDS: Metolazone TAB* 5 MG G TUBE SCH (10:26)
[2016-05-23] MEDS: Potassium Chloride LIQUID* 20 MEQ PACKET PO SCH ×3 (10:26→21:53)
[2016-05-23] MEDS ORDERED: Furosemide IV* 10 MG/ML 10 ML VIAL (100 MG) IV ONE (11:00)
--- NOTE | 2016-05-23 11:36 | PN ---
Progress Note - Progress Note Note: CRITICAL CARE MEDICINE Date: 05/23/16 Time: 925 SUBJECTIVE: Patient seen and examined. PHYSICAL EXAM: Vital Signs: Reviewed. febrile stable. VS stable Neurologic: bit more sedate with propofol. following commands. HEENT: pupils equal. Sclera icteric. Trachea midline. Cardiovascular: distant, S1 S2 Respiratory: coarse and dec Abdomen: Soft, nt. anasarca better Extremities: Warm. +edema; skin changes LABS: Reviewed. IMAGING: Reviewed. MEDICATIONS: Reviewed. ASSESSMENT: 46 M Acute hypoxic and hypercarbic resp failure Aspiration pneumonitis Acute cor pulmonale Alcoholic cardiomyopathy Acute etoh withdrawal/DTs Hepatic encephalopahy Anasarca Malnutition mod degree PLAN: Neurologic: better leta - although this is on precedex and prop, hopeful he is coming thru DTs. keep precedex lower propo, but avoid confused self liberation. Cardiovascular: perfusing. Intravasc volume up and tolerating lasix and diuretics continued to support optivolemic state; remains difficult to find that junction but continued mobilization. See diuretic orders Respiratory: FIO2 coming down slowly. COnitnued as airway pressures not easily adjusted from here. Hope to move to more spont resp but going to involve more co. time nad lung protection Gastrointestinal: lfts stable. frances feeds. Maintain course. Renal/Metabolic: replete lytes. diuretics Infectious Disease: on zosyn and vanco continued fort anticipated 7-10 days total Hematology: holding. hsq Endocrine: stable at present. Musculoskeletal: chair position as able and oob soon if we can get there. Psych/Social: will update family; need to push pt further Supportive and preventative care as ordered. SUP: ppi VTE prophylaxis: heparin Butcher catheter given critical illness, monitoring needs for accurate assessment of KAELYN and KDIGO criteria for critically ill patients and to avoid potential harms of urinary retention, skin breakdown/ulcers. Disposition: ICU Code Status: Full Critical Care Time: 35min Ganesh Barrett DO
[2016-05-24] MEDS: Chlorhexidine MOUTHWASH 0.12%* 15 ML UDC TOPICAL SCH ×6 (00:25→19:27)
[2016-05-24] MEDS: Acetaminophen TAB* 325 MG PO PRN ×2 (00:53→23:01)
[2016-05-24] MEDS: Dexmedetomidine* 50 ML IVPB SCH ×7 (01:41→22:57)
[2016-05-24] MEDS: Vancomycin(*) 1,000 MG in NS 0.9% 250 ML* 250 ML IVPB SCH ×2 (03:44→12:32)
[2016-05-24] MEDS: Propofol* 100 ML IV SCH ×3 (03:44→20:09)
[2016-05-24] MEDS: Piperac/Tazob 3.375 gm in NS* 3.375 GM/100 ML BAG IVPB SCH ×3 (05:24→20:57)
[2016-05-24] MEDS: Heparin VIAL(*) 5000 UNITS/ML VIAL (FIVE THOUSAND) SUBCUT SCH ×3 (05:31→21:10)
[2016-05-24 05:37] LABS: Hematocrit 35 % (42-52); Hemoglobin 10.2 g/dl (14.0-18.0); Mean Corpuscular HGB Conc 29 g/dl (31-36); Mean Corpuscular Hemoglobin 28 pg (27-31); Mean Corpuscular Volume 97 fL (80-94); Mean Platelet Volume 9 um3 (7.4-10.4); Red Blood Count 3.66 10^6/ul (4.0-5.4); White Blood Count 11.8 10^3/ul (3.5-10.8)
[2016-05-24 05:40] LABS: Comments Flag Yes; Red Cell Distribution Width 23 % (10.5-15)
[2016-05-24 05:49] LABS: BUN/Creatinine Ratio 15.5 (8-20); Calcium 8.8 mg/dL (8.6-10.3); EGFR African American 125.4 (>60); EGFR Non-African American 97.5 (>60); Magnesium 2.2 mg/dL (1.9-2.7); Phosphorus 3.7 mg/dL (2.5-5.0); Potassium 3.2 mmol/L (3.5-5.0)
[2016-05-24] MEDS ORDERED: Vancomycin Trough Check NOTE FOLLOW UP ONE ×2 (08:00→11:30)
[2016-05-24] MEDS: Potassium Chloride LIQUID* 20 MEQ PACKET PO SCH ×3 (09:27→21:11)
[2016-05-24] MEDS: Potassium & Sodium Phos 250MG* = 1 PACKET G TUBE SCH (09:27)
[2016-05-24] MEDS: Folic Acid TAB* 1 MG PO SCH (09:27)
[2016-05-24] MEDS: Aspirin EC Low Dose* 81 MG TAB.EC PO SCH (09:27)
[2016-05-24] MEDS: Metolazone TAB* 5 MG G TUBE SCH (09:27)
[2016-05-24] MEDS: Spironolactone TAB* 25 MG G TUBE SCH (09:27)
[2016-05-24] MEDS: Lansoprazole SOLUTAB* 30 MG G TUBE SCH (09:27)
[2016-05-24] MEDS: Metoprolol Tartrate TAB* 25 MG PO SCH ×2 (09:27→21:11)
[2016-05-24] MEDS: Thiamine IV* 100 MG/ML 2 ML VIAL IV SCH (09:28)
--- NOTE | 2016-05-24 10:42 | PN ---
Progress Note - Progress Note Note: CRITICAL CARE MEDICINE Date: 05/24/16 Time: 925 SUBJECTIVE: Patient seen and examined. PHYSICAL EXAM: Vital Signs: Reviewed. febrile stable. VS stable Neurologic: requiring low dose propofol. following commands but delirious. HEENT: pupils equal. Sclera icteric. Trachea midline. ett Cardiovascular: distant, S1 S2, HR 80s Respiratory: coarse and dec but better; tried aprv but not tolerating again Abdomen: Soft, nt. anasarca better Extremities: Warm. +edema; chronic skin changes LABS: Reviewed. IMAGING: Reviewed. MEDICATIONS: Reviewed. ASSESSMENT: 46 M Acute hypoxic and hypercarbic resp failure Aspiration pneumonitis Acute cor pulmonale Alcoholic cardiomyopathy Acute etoh withdrawal/DTs Hepatic encephalopahy Anasarca Malnutition mod degree PLAN: Neurologic: seems to be settling out although still with precedex and propofol requirement. add clondidine td to see if we can get off precedex sooner then later. Cardiovascular: perfusing. Intravasc volume still stable. Mobilizing. hold off on lasix today to allow contraction and K to equilibrate. may need a bit more bb when coming off sedation too. Respiratory: FIO2 stuck at 60%. Unable to tolerate aprv yet again due to tachycardia and declining bp. Keep high level PCV and see if he can recruit with further spont breaths. Still slow going. Gastrointestinal: frances feeds. sup Renal/Metabolic: repleting lytes. diuretics as is Infectious Disease: on zosyn and vanco continued for anticipated 7-10 days total Hematology: holding. hsq Endocrine: stable at present. Musculoskeletal: oob today to chair and allow him to work this weekend Psych/Social: mother updated yesterday Supportive and preventative care as ordered. SUP: ppi VTE prophylaxis: heparin Butcher catheter given critical illness, monitoring needs for accurate assessment of KAELYN and KDIGO criteria for critically ill patients and to avoid potential harms of urinary retention, skin breakdown/ulcers. Disposition: ICU Code Status: Full Critical Care Time: 35min Ganesh Barrett DO
[2016-05-24] MEDS ORDERED: cloNIDine 0.2 MG PATCH* 0.2 MG/24 HR 7 DAY PATCH TRANSDERM SCH (11:00)
[2016-05-24] MEDS ORDERED: Potassium Chloride LIQUID* 20 MEQ PACKET PO ONE (11:00)
[2016-05-24] MEDS: acetaZOLAMIDE VIAL* 250 MG in NS 0.9% 50 ML* 50 ML IVPB SCH ×2 (11:22→20:25)
[2016-05-24] MEDS: Vancomycin(*) 750 MG in NS 0.9% 250 ML* 250 ML IVPB SCH (18:20)
[2016-05-24] MEDS: LORazepam INJ* 2 MG/ML 1 ML VIAL IV PUSH PRN (21:21)
[2016-05-25] MEDS: Propofol* 100 ML IV SCH ×4 (00:45→21:12)
[2016-05-25] MEDS: Chlorhexidine MOUTHWASH 0.12%* 15 ML UDC TOPICAL SCH ×6 (00:46→19:15)
[2016-05-25] MEDS: Vancomycin(*) 750 MG in NS 0.9% 250 ML* 250 ML IVPB SCH ×2 (02:06→09:40)
[2016-05-25] MEDS: Dexmedetomidine* 50 ML IVPB SCH ×5 (02:13→19:14)
[2016-05-25] MEDS: Piperac/Tazob 3.375 gm in NS* 3.375 GM/100 ML BAG IVPB SCH ×3 (04:18→19:14)
[2016-05-25] MEDS: Heparin VIAL(*) 5000 UNITS/ML VIAL (FIVE THOUSAND) SUBCUT SCH ×3 (05:30→21:13)
[2016-05-25] MEDS: acetaZOLAMIDE VIAL* 250 MG in NS 0.9% 50 ML* 50 ML IVPB SCH (08:31)
[2016-05-25] MEDS: Metolazone TAB* 5 MG G TUBE SCH (08:33)
[2016-05-25] MEDS: Spironolactone TAB* 25 MG G TUBE SCH (08:33)
[2016-05-25] MEDS: Lansoprazole SOLUTAB* 30 MG G TUBE SCH (08:33)
[2016-05-25] MEDS: Folic Acid TAB* 1 MG PO SCH (08:33)
[2016-05-25] MEDS: Thiamine TAB* 100 MG TAB PO SCH (08:33)
[2016-05-25] MEDS: Aspirin EC Low Dose* 81 MG TAB.EC PO SCH (08:33)
[2016-05-25] MEDS: Metoprolol Tartrate TAB* 25 MG PO SCH ×2 (08:33→21:13)
--- NOTE | 2016-05-25 10:15 | PN ---
Progress Note - Progress Note Note: CRITICAL CARE MEDICINE Date: 05/25/16 Time: 910 SUBJECTIVE: Patient seen and examined. PHYSICAL EXAM: Vital Signs: Reviewed. febrile stable. VS stable. HR 80s. Good uout still Neurologic: low dose propofol. following commands but delirium still, although less HEENT: pupils equal. Sclera anicteric. Trachea midline. ett Cardiovascular: distant, S1 S2, HR 80s Respiratory: coarse. better 14/10. Fio2 to 50%. Abdomen: Soft, nt. anasarca much better Extremities: Warm. +edema; chronic skin changes LABS: Reviewed. IMAGING: Reviewed. MEDICATIONS: Reviewed. ASSESSMENT: 46 M Acute hypoxic and hypercarbic resp failure - remains vent dependent Aspiration pneumonitis - stable Acute cor pulmonale - tolerating Alcoholic cardiomyopathy Acute etoh withdrawal/DTs - coming through Hepatic encephalopahy - better Anasarca - improving Malnutition mod degree PLAN: Neurologic: improving. added clonidine. see if we can dec precedex, and can still use low dose propofol. Cardiovascular: Perfused. mobilizing fluid still. Respiratory: FIO2 to 50%. PCV with less pressure as well. need to foster secretion improvement. check cxr tomorrow to see if we can find a push towards liberation in next few days. trial high level cpap tomorrow if FiO2 can stay down. Gastrointestinal: frances feeds. sup Renal/Metabolic: repleting lytes. diuretics Infectious Disease: on zosyn and vanco continued for anticipated 7-10 days total Hematology: holding. hsq Endocrine: stable at present. Musculoskeletal: oob today to chair and allow him to work still Psych/Social: mother updated yesterday Supportive and preventative care as ordered. SUP: ppi VTE prophylaxis: heparin Butcher catheter given critical illness, monitoring needs for accurate assessment of KAELYN and KDIGO criteria for critically ill patients and to avoid potential harms of urinary retention, skin breakdown/ulcers. Disposition: ICU Code Status: Full Critical Care Time: 35min Ganesh Barrett DO
[2016-05-25] MEDS: Potassium Chloride LIQUID* 20 MEQ PACKET G TUBE SCH ×2 (14:19→21:13)
[2016-05-26] MEDS: LORazepam INJ* 2 MG/ML 1 ML VIAL IV PUSH PRN ×2 (01:20→18:24)
[2016-05-26] MEDS: Chlorhexidine MOUTHWASH 0.12%* 15 ML UDC TOPICAL SCH ×6 (01:22→20:04)
[2016-05-26] MEDS: Propofol* 100 ML IV SCH ×6 (01:25→23:03)
[2016-05-26] MEDS: Dexmedetomidine* 50 ML IVPB SCH ×2 (01:32→08:19)
[2016-05-26] MEDS: Piperac/Tazob 3.375 gm in NS* 3.375 GM/100 ML BAG IVPB SCH ×3 (04:03→20:04)
[2016-05-26] MEDS: Heparin VIAL(*) 5000 UNITS/ML VIAL (FIVE THOUSAND) SUBCUT SCH ×3 (05:37→21:09)
[2016-05-26 06:08] LABS: Hematocrit 28 % (42-52); Mean Corpuscular Hemoglobin 29 pg (27-31); Mean Corpuscular Volume 99 fL (80-94); Mean Platelet Volume 9 um3 (7.4-10.4); White Blood Count 13.8 10^3/ul (3.5-10.8)
[2016-05-26 06:09] LABS: Comments Flag Yes; Mean Corpuscular HGB Conc 29 g/dl (31-36); Red Cell Distribution Width 22 % (10.5-15)
[2016-05-26 06:20] LABS: Albumin 2.8 g/dL (3.2-5.2); BUN/Creatinine Ratio 18.1 (8-20); Calcium 9.1 mg/dL (8.6-10.3); EGFR African American 127.2 (>60); EGFR Non-African American 98.9 (>60); Globulin 3.4 g/dL (2-4); Magnesium 2.2 mg/dL (1.9-2.7); Phosphorus 3.2 mg/dL (2.5-5.0); Potassium 3.4 mmol/L (3.5-5.0); Total Bilirubin 1.2 mg/dL (0.2-1.0); Total Protein 6.2 g/dL (6.4-8.9)
[2016-05-26] MEDS: Thiamine TAB* 100 MG TAB PO SCH (08:24)
[2016-05-26] MEDS: Potassium Chloride LIQUID* 20 MEQ PACKET G TUBE SCH (08:24)
[2016-05-26] MEDS: Metoprolol Tartrate TAB* 25 MG PO SCH ×2 (08:24→21:09)
[2016-05-26] MEDS: Aspirin EC Low Dose* 81 MG TAB.EC PO SCH (08:26)
[2016-05-26] MEDS: Folic Acid TAB* 1 MG PO SCH (08:26)
[2016-05-26] MEDS: Spironolactone TAB* 25 MG G TUBE SCH (08:26)
[2016-05-26] MEDS: Lansoprazole SOLUTAB* 30 MG G TUBE SCH (08:27)
[2016-05-26] MEDS: Metolazone TAB* 5 MG G TUBE SCH (08:31)
--- NOTE | 2016-05-26 09:23 | RAD ---
INDICATION: Respiratory failure, status post aspiration. COMPARISON: Comparison is made with a prior study from May 21, 2016. TECHNIQUE: 2 portable views of the chest were obtained. FINDINGS: There is an endotracheal tube which projects over the midline which appears unchanged. There is a nasogastric tube which demonstrates normal course. There are small infiltrates at both lung bases which appear improved. There has been interval resolution of the previously noted bilateral pleural effusions. IMPRESSION: 1. SMALL BIBASILAR INFILTRATES, IMPROVED. 2. INTERVAL RESOLUTION OF SMALL BILATERAL PLEURAL EFFUSIONS.
[2016-05-26] MEDS ORDERED: Vancomycin Trough Check NOTE FOLLOW UP ONE (09:30)
[2016-05-26] MEDS ORDERED: fentaNYL* 50 MCG/ML 2 ML VIAL (100 MCG VIAL) ONE (11:17)
[2016-05-26] MEDS ORDERED: fentaNYL* 50 MCG/ML 2 ML VIAL (100 MCG VIAL) IV SLOW PU ONE (11:21)
--- NOTE | 2016-05-26 12:53 | PN ---
Progress Note - Progress Note Note: CRITICAL CARE MEDICINE Date: 05/26/16 Time: 945 SUBJECTIVE: Patient seen and examined. PHYSICAL EXAM: Vital Signs: Reviewed. febrile stable. VS stable. HR 80s but does go to 100s. Good uout still Neurologic: propofol. precedex off this am. following commands but delirium still, although less again HEENT: pupils equal. Sclera anicteric. Trachea midline. ett Cardiovascular: distant, S1 S2, HR 80s Respiratory: clear 14/7. Fio2 to 45%. Abdomen: Soft, nt. anasarca markedly better Extremities: Warm. +edema; chronic skin changes LABS: Reviewed. IMAGING: Reviewed. MEDICATIONS: Reviewed. ASSESSMENT: 46 M Acute hypoxic and hypercarbic resp failure - remains vent dependent Aspiration pneumonitis - stable Acute cor pulmonale - tolerating Alcoholic cardiomyopathy Acute etoh withdrawal/DTs - coming through Hepatic encephalopahy - better Anasarca - improving Malnutition mod degree PLAN: Neurologic: improving.try off precedex this am to see where his leta takes us and then lower propofol. if this not holding then reverse this and may need to keep precedex and inc clondine and utilize less propofol all together again. prn fent Cardiovascular: Perfused. mobilizing fluid still. hold off on lasix given contraction but may be able to resume as needed soon. Respiratory: FIO2 to 40% with cpap trial this am. still not well enough to liberate with high chance for success, but perhpas in another 24-48h his chances can be maximized and will look to liberate. Gastrointestinal: frances feeds continued. sup Renal/Metabolic: f/u but holding well. Infectious Disease: abx completed. Hematology: holding, although more of a Hb drop. f/u. hsq Endocrine: stable at present. Musculoskeletal: oob today to chair and allow him to work Psych/Social: mother updated Supportive and preventative care as ordered. SUP: ppi VTE prophylaxis: heparin Butcher catheter given critical illness, monitoring needs for accurate assessment of KAELYN and KDIGO criteria for critically ill patients and to avoid potential harms of urinary retention, skin breakdown/ulcers. Disposition: ICU Code Status: Full Critical Care Time: 35min Ganesh Barrett DO
[2016-05-26] MEDS: Potassium Chloride LIQUID* 20 MEQ PACKET PO SCH ×2 (16:28→21:09)
[2016-05-26] MEDS ORDERED: Furosemide IV* 10 MG/ML VIAL (40 MG) ONE (18:36)
--- NOTE | 2016-05-26 19:01 | RAD ---
HISTORY: Acute change in respiratory status, low sats on ventilator COMPARISONS: May 26, 2016 at 8:32 AM VIEWS:1: Single frontal portable view of the chest at 6:41 PM FINDINGS: LINES AND TUBES: An endotracheal tube is noted with the tip overlying the trachea between the clavicles and the rigoberto. A gastric tube is noted with the tip below the [id number] the current examination, but below the diaphragm. CARDIOMEDIASTINAL SILHOUETTE: The cardiomediastinal silhouette is normal for portable technique. PLEURA: The costophrenic angles are sharp. No pleural abnormalities are noted. LUNG PARENCHYMA: There is minimal patchy alveolar opacification of the lung bases bilaterally ABDOMEN: The upper abdomen is clear. There is no subphrenic gas. BONES AND SOFT TISSUES: No bone or soft tissue abnormalities are noted. IMPRESSION: LINES AND TUBES ABOVE. PATCHY BIBASILAR ATELECTASIS VERSUS CONSOLIDATION.
[2016-05-26] MEDS: Acetaminophen TAB* 325 MG PO PRN (21:09)
[2016-05-27] MEDS: Chlorhexidine MOUTHWASH 0.12%* 15 ML UDC TOPICAL SCH ×6 (00:51→21:39)
[2016-05-27] MEDS: Propofol* 100 ML IV SCH ×5 (03:45→23:12)
[2016-05-27] MEDS: Piperac/Tazob 3.375 gm in NS* 3.375 GM/100 ML BAG IVPB SCH (04:45)
[2016-05-27] MEDS: Heparin VIAL(*) 5000 UNITS/ML VIAL (FIVE THOUSAND) SUBCUT SCH ×3 (05:44→21:39)
[2016-05-27 05:59] LABS: Hematocrit 33 % (42-52); Hemoglobin 9.4 g/dl (14.0-18.0); Mean Corpuscular HGB Conc 29 g/dl (31-36); Mean Corpuscular Hemoglobin 28 pg (27-31); Mean Corpuscular Volume 98 fL (80-94); Mean Platelet Volume 9 um3 (7.4-10.4); Red Blood Count 3.38 10^6/ul (4.0-5.4); White Blood Count 18.6 10^3/ul (3.5-10.8)
[2016-05-27 06:02] LABS: Comments Flag Yes; Red Cell Distribution Width 23 % (10.5-15)
[2016-05-27 06:14] LABS: BUN/Creatinine Ratio 17.8 (8-20); Calcium 9.2 mg/dL (8.6-10.3); EGFR African American 147.5 (>60); EGFR Non-African American 114.7 (>60); Magnesium 2.3 mg/dL (1.9-2.7); Potassium 3.3 mmol/L (3.5-5.0)
[2016-05-27] MEDS: Potassium Chloride LIQUID* 20 MEQ PACKET PO SCH ×3 (09:22→21:40)
[2016-05-27] MEDS: Metolazone TAB* 5 MG G TUBE SCH (09:22)
[2016-05-27] MEDS: Aspirin EC Low Dose* 81 MG TAB.EC PO SCH (09:22)
[2016-05-27] MEDS: Spironolactone TAB* 25 MG G TUBE SCH (09:22)
[2016-05-27] MEDS: Folic Acid TAB* 1 MG PO SCH (09:22)
[2016-05-27] MEDS: Metoprolol Tartrate TAB* 25 MG PO SCH (09:22)
[2016-05-27] MEDS: Thiamine TAB* 100 MG TAB PO SCH (09:22)
[2016-05-27] MEDS: Lansoprazole SOLUTAB* 30 MG G TUBE SCH (09:22)
[2016-05-27] MEDS ORDERED: Metoprolol Tartrate TAB* 25 MG G TUBE ONE (10:49)
[2016-05-27] MEDS ORDERED: cloNIDine 0.3 MG PATCH* 0.3 MG/24 HR 7 DAY PATCH TRANSDERM SCH (11:00)
--- NOTE | 2016-05-27 11:01 | PN ---
Progress Note - Progress Note Note: CRITICAL CARE MEDICINE Date: 05/27/16 Time: 910 SUBJECTIVE: Patient seen and examined. PHYSICAL EXAM: Vital Signs: Reviewed. HR up. On APV with neg pressure ventilation and inc wob associated. Uout ok. Neurologic: propofol required. following commands and agitated. HEENT: pupils equal. Sclera anicteric. Trachea midline. ett Cardiovascular: distant, S1 S2, HR 120s Respiratory: increased rhonchi and forced exhalation. Abdomen: Soft, nt. edema better Extremities: Warm. +edema; chronic skin changes LABS: Reviewed. IMAGING: Reviewed. MEDICATIONS: Reviewed. ASSESSMENT: 46 M Acute hypoxic and hypercarbic resp failure - remains vent dependent Aspiration pneumonitis - stable Acute cor pulmonale - tolerating Alcoholic cardiomyopathy Acute etoh withdrawal/DTs - coming through Hepatic encephalopahy - better Anasarca - improving Malnutition mod degree PLAN: Neurologic: was improved but agitation associated with vent dysync now and adjusted to high level ps. Allow him to equilibrate. trying to avoid needing to resume precedex. Inc clondine and inc bb to mimic affects. prn fent in case this is more pain related. Cardiovascular: Perfused. mobilizing fluid with lasix over next 24hrs as we really need to move towards a window for extubation. Need HR to come back down to allow R heart equilibrate and avoid R leading to L heart failure. Respiratory: FIO2 to 45%. High level cpap today as we still need some work, although he has worked all night. re-equilibrate. Gastrointestinal: tf continued. sup. on lactulose and stable there. Renal/Metabolic: Na and HCO3 still up. keep diuretics and utilize lasix again, although this may contract. Infectious Disease: abx completed. Hematology: Hb re-equilibrated. hsq Endocrine: stable at present. Musculoskeletal: oob to chair as able Psych/Social: will update mother Supportive and preventative care as ordered. SUP: ppi VTE prophylaxis: heparin Butcher catheter given critical illness, monitoring needs for accurate assessment of KAELYN and KDIGO criteria for critically ill patients and to avoid potential harms of urinary retention, skin breakdown/ulcers. Disposition: ICU Code Status: Full Critical Care Time: 35min Ganesh Barrett DO
[2016-05-27] MEDS: Furosemide IV* 10 MG/ML VIAL (40 MG) IV SLOW PU SCH ×2 (12:04→17:37)
[2016-05-27 12:05] LABS: Phosphorus 2.6 mg/dL (2.5-5.0)
[2016-05-27] MEDS: Metoprolol Tartrate TAB* 25 MG G TUBE SCH (21:40)
[2016-05-28] MEDS: Chlorhexidine MOUTHWASH 0.12%* 15 ML UDC TOPICAL SCH ×6 (00:55→20:36)
[2016-05-28] MEDS: fentaNYL* 50 MCG/ML 2 ML VIAL (100 MCG VIAL) IV SLOW PU PRN ×4 (01:22→20:45)
[2016-05-28] MEDS: Propofol* 100 ML IV SCH ×4 (02:17→22:52)
[2016-05-28] MEDS: Acetaminophen TAB* 325 MG PO PRN (04:45)
[2016-05-28 05:53] LABS: Hematocrit 32 % (42-52); Hemoglobin 9.5 g/dl (14.0-18.0); Mean Corpuscular HGB Conc 30 g/dl (31-36); Mean Corpuscular Hemoglobin 29 pg (27-31); Mean Corpuscular Volume 96 fL (80-94); Mean Platelet Volume 9 um3 (7.4-10.4); White Blood Count 16.2 10^3/ul (3.5-10.8)
[2016-05-28 05:56] LABS: Comments Flag Yes; Red Cell Distribution Width 23 % (10.5-15)
[2016-05-28] MEDS: Heparin VIAL(*) 5000 UNITS/ML VIAL (FIVE THOUSAND) SUBCUT SCH ×3 (06:09→21:22)
[2016-05-28 06:10] LABS: BUN/Creatinine Ratio 23.2 (8-20); Calcium 9.2 mg/dL (8.6-10.3); EGFR Non-African American 100.3 (>60); Globulin 3.8 g/dL (2-4); Magnesium 2.1 mg/dL (1.9-2.7); Phosphorus 2.4 mg/dL (2.5-5.0); Total Bilirubin 1.1 mg/dL (0.2-1.0); Total Protein 6.8 g/dL (6.4-8.9)
[2016-05-28] MEDS: Folic Acid TAB* 1 MG PO SCH (08:16)
[2016-05-28] MEDS: Aspirin EC Low Dose* 81 MG TAB.EC PO SCH (08:17)
[2016-05-28] MEDS: Potassium Chloride LIQUID* 20 MEQ PACKET PO SCH (08:17)
[2016-05-28] MEDS: Thiamine TAB* 100 MG TAB PO SCH (08:17)
[2016-05-28] MEDS: Metoprolol Tartrate TAB* 25 MG G TUBE SCH ×2 (08:17→20:37)
[2016-05-28] MEDS: Metolazone TAB* 5 MG G TUBE SCH (08:18)
[2016-05-28] MEDS: Lansoprazole SOLUTAB* 30 MG G TUBE SCH (08:18)
[2016-05-28] MEDS: Spironolactone TAB* 25 MG G TUBE SCH (08:18)
[2016-05-28] MEDS: Furosemide IV* 10 MG/ML VIAL (40 MG) IV SLOW PU SCH (08:19)
[2016-05-28] MEDS ORDERED: Potassium Phosphate IV* 15 MMOLE in NS 0.9% 250 ML* 250 ML IVPB ONE (09:53)
[2016-05-28] MEDS ORDERED: Metolazone TAB* 5 MG G TUBE ONE (09:55)
[2016-05-28] MEDS ORDERED: acetaZOLAMIDE VIAL* 250 MG in NS 0.9% 50 ML* 50 ML IVPB SCH (10:00)
[2016-05-28] MEDS ORDERED: NS 0.9% 250 ML* 250 ML ONE (10:38)
[2016-05-28] MEDS: Potassium Chloride LIQUID* 20 MEQ PACKET G TUBE SCH ×3 (10:46→20:38)
--- NOTE | 2016-05-28 11:56 | PN ---
Progress Note - Progress Note Note: CRITICAL CARE MEDICINE Date: 05/28/16 Time: 910 SUBJECTIVE: Patient seen and examined. PHYSICAL EXAM: Vital Signs: Reviewed. HR still tachy. PCV. FIo2 40%. Uout ok. Neurologic: propofol required. following commands but a little slower. HEENT: pupils equal. Sclera anicteric. Trachea midline. ett Cardiovascular: distant, S1 S2, HR 110s Respiratory: +rhonchi bl Abdomen: Soft, nt. mild distention Extremities: Warm. edema much better. chronic skin changes LABS: Reviewed. IMAGING: Reviewed. MEDICATIONS: Reviewed. ASSESSMENT: 46 M Acute hypoxic and hypercarbic resp failure - remains vent dependent Aspiration pneumonitis - stable Acute cor pulmonale - tolerating Alcoholic cardiomyopathy Acute etoh withdrawal/DTs - coming through Hepatic encephalopahy - better Anasarca - improving Malnutition mod degree PLAN: Neurologic: still requires multiple modalities to control sympathetics post withdrawal. clonidine td. bb. prn benzos but trying to avoid. propofol gtt. try to increase narcs for comfort today and see if we can use less prop. Not really desiring to go back to precedex with all the clonidine td but may need to try to see if we can gain an advantage to blunt sym again. Cardiovascular: Perfusing. Vol status ok but try to maximize further with diuretic cocktail. Respiratory: FIO2 to 40%. PCV and maintain recruitment. Will need high level cpap try again in anticipation for liberation tomorrow. Still not going to look much better then this on vent. Gastrointestinal: tf continued. sup. on lactulose. amm ok. May have a touch excess kate but not a problem. lfts ok. Renal/Metabolic: cocktail diuretics to foster Na, HCO3 movement and replace K although unable to hold. As maximizes as he can be. Infectious Disease: alford fever still but no infective burden. has been off abx now and clinical follow. Hematology: Hb stable. plt a little reactive. hsq Endocrine: stable at present. glu ok. still not on steroids as always acting adenergic anyway. Musculoskeletal: oob to chair as able Psych/Social: d/w pts brothers and mother. Supportive and preventative care as ordered. SUP: ppi VTE prophylaxis: heparin Alford catheter given critical illness, monitoring needs for accurate assessment of KAELYN and KDIGO criteria for critically ill patients and to avoid potential harms of urinary retention, skin breakdown/ulcers. Disposition: ICU Code Status: Full Critical Care Time: 35min Ganesh Barrett DO
[2016-05-28] MEDS ORDERED: Dexmedetomidine* 50 ML ONE (12:13)
[2016-05-28] MEDS: Dexmedetomidine* 50 ML IVPB SCH ×3 (12:16→21:36)
[2016-05-28] MEDS: Albuterol/Ipratropium NEB.SOL* Albuterol 2.5 MG/Ipratropium 0.5 MG 3 ML INH SCH ×3 (13:40→21:10)
[2016-05-28] MEDS: Albumin Human 25%* 50 ML BTL IV ONE ×2 (15:59→16:09)
[2016-05-28] MEDS: Albumin Human 5%* 250 ML BTL IV ONE ×2 (15:59→16:08)
[2016-05-28] MEDS ORDERED: PREMIX* 0 ML ONE (16:19)
[2016-05-28] MEDS ORDERED: Furosemide IV* 10 MG/ML VIAL (40 MG) IV SLOW PU SCH (17:00)
[2016-05-28] MEDS ORDERED: Albumin Human 25%* 50 ML in PREMIX* 0 ML IV ONE (17:00)
[2016-05-28] MEDS ORDERED: Albumin Human 25%* 200 ML in PREMIX* 0 ML IV ONE (17:00)
[2016-05-29] MEDS: Chlorhexidine MOUTHWASH 0.12%* 15 ML UDC TOPICAL SCH ×3 (00:10→08:30)
[2016-05-29] MEDS: Albuterol/Ipratropium NEB.SOL* Albuterol 2.5 MG/Ipratropium 0.5 MG 3 ML INH SCH ×6 (00:40→19:53)
[2016-05-29] MEDS: fentaNYL* 50 MCG/ML 2 ML VIAL (100 MCG VIAL) IV SLOW PU PRN ×3 (01:01→23:21)
[2016-05-29] MEDS: Dexmedetomidine* 50 ML IVPB SCH ×4 (03:30→19:36)
[2016-05-29] MEDS: Heparin VIAL(*) 5000 UNITS/ML VIAL (FIVE THOUSAND) SUBCUT SCH ×3 (05:42→23:21)
[2016-05-29] MEDS: Propofol* 100 ML IV SCH (06:38)
[2016-05-29 06:45] LABS: Hematocrit 34 % (42-52); Hemoglobin 9.9 g/dl (14.0-18.0); Mean Corpuscular HGB Conc 29 g/dl (31-36); Mean Corpuscular Hemoglobin 29 pg (27-31); Mean Corpuscular Volume 98 fL (80-94); Mean Platelet Volume 9 um3 (7.4-10.4); Red Blood Count 3.43 10^6/ul (4.0-5.4); White Blood Count 10.8 10^3/ul (3.5-10.8)
[2016-05-29 06:52] LABS: Comments Flag Yes; Red Cell Distribution Width 24 % (10.5-15)
[2016-05-29 07:10] LABS: Calcium 9.9 mg/dL (8.6-10.3); EGFR African American 154.8 (>60); EGFR Non-African American 120.4 (>60); Magnesium 2.4 mg/dL (1.9-2.7); Phosphorus 3.5 mg/dL (2.5-5.0); Potassium 3.6 mmol/L (3.5-5.0)
--- NOTE | 2016-05-29 11:04 | PN ---
Progress Note - Progress Note Note: CRITICAL CARE MEDICINE Date: 05/29/16 Time: 900 SUBJECTIVE: Patient seen and examined. PHYSICAL EXAM: looks as good as ever Vital Signs: Reviewed. HR down to 80s. PCV. Fio2 40%. Uout well Neurologic: propofol low dose. low dose precedex. following commands. capacitance is still hard to determine. HEENT: pupils equal. Sclera anicteric. Trachea midline. ett Cardiovascular: distant, S1 S2 Respiratory: no rhonchi Abdomen: Soft, nt. mild distention Extremities: Warm. no over edema. chronic skin changes LABS: Reviewed. IMAGING: Reviewed. MEDICATIONS: Reviewed. ASSESSMENT: 46 M Acute hypoxic and hypercarbic resp failure - remains vent dependent Aspiration pneumonitis - stable Acute cor pulmonale - tolerating Alcoholic cardiomyopathy Acute etoh withdrawal/DTs - coming through Hepatic encephalopahy - better Anasarca - improving Malnutition mod degree PLAN: Neurologic: sedation needs seem well. hold prop but continue precedex during early phase post liberation. Cardiovascular: Perfusing. Vol status ok. Held off on further diuretics given his R heart ailments and becoming dry. try to maintain with bb and attempt afterload relief post liberation as we can. Respiratory: FIO2 to 40%. PCV. High level cpap 16/10. peep needed for air trapping. liberate directly to hfo2 and see if he can maintain. Able ot generate 50lpm flow on cpap. see if he can maintain recruitment. Will d/w him in regards to re-intubation potentials or lack there of post liberation when capacity better met. Gastrointestinal: tf held. f/u Renal/Metabolic: stable. lytes as well as they have been. Infectious Disease: even fever dissipating. off abx Hematology: Hb stable. hsq Endocrine: glu ok. Musculoskeletal: oob to chair today possibly; will need pt Psych/Social: will updated family Supportive and preventative care as ordered. SUP: ppi VTE prophylaxis: heparin Butcher catheter given critical illness, monitoring needs for accurate assessment of KAELYN and KDIGO criteria for critically ill patients and to avoid potential harms of urinary retention, skin breakdown/ulcers. Disposition: ICU Code Status: Full Critical Care Time: 35min Ganesh Barrett DO
[2016-05-29] MEDS: Metoprolol Tartrate TAB* 25 MG G TUBE SCH ×2 (11:24→23:21)
[2016-05-29] MEDS: Spironolactone TAB* 25 MG G TUBE SCH (11:24)
[2016-05-29] MEDS: Lansoprazole SOLUTAB* 30 MG G TUBE SCH (11:24)
[2016-05-29] MEDS: Aspirin EC Low Dose* 81 MG TAB.EC PO SCH (11:24)
[2016-05-29] MEDS: Thiamine TAB* 100 MG TAB PO SCH (11:24)
[2016-05-29] MEDS: Folic Acid TAB* 1 MG PO SCH (11:24)
[2016-05-29] MEDS: Potassium Chloride LIQUID* 20 MEQ PACKET G TUBE SCH (18:24)
[2016-05-30] MEDS: Dexmedetomidine* 50 ML IVPB SCH ×3 (00:57→18:11)
[2016-05-30] MEDS: LORazepam INJ* 2 MG/ML 1 ML VIAL IV PUSH PRN ×3 (01:28→15:35)
[2016-05-30] MEDS: Albuterol/Ipratropium NEB.SOL* Albuterol 2.5 MG/Ipratropium 0.5 MG 3 ML INH SCH ×6 (01:57→20:31)
[2016-05-30] MEDS: Heparin VIAL(*) 5000 UNITS/ML VIAL (FIVE THOUSAND) SUBCUT SCH ×3 (05:43→22:01)
[2016-05-30] MEDS: Folic Acid TAB* 1 MG PO SCH (09:12)
[2016-05-30] MEDS: Metoprolol Tartrate TAB* 25 MG G TUBE SCH ×2 (09:12→21:33)
[2016-05-30] MEDS: Aspirin EC Low Dose* 81 MG TAB.EC PO SCH (09:12)
[2016-05-30] MEDS: Spironolactone TAB* 25 MG G TUBE SCH (09:13)
[2016-05-30] MEDS: Thiamine TAB* 100 MG TAB PO SCH (09:13)
[2016-05-30] MEDS ORDERED: Furosemide IV* 10 MG/ML VIAL (40 MG) IV SLOW PU ONE (10:40)
--- NOTE | 2016-05-30 12:01 | RAD ---
Indication: Post extubation with hypoxia. Single frontal view of the chest performed at 1024 hours was reviewed. Comparison is made with previous exam dated May 26, 2016. Cardiomegaly is noted. ET tube is removed been removed. Chronic pleural changes are noted. No definite pneumonia is identified. IMPRESSION: ET TUBE HAS BEEN REMOVED. CARDIOMEGALY IS NOTED. NO DEFINITE PNEUMONIA OR CHF IS NOTED.
--- NOTE | 2016-05-30 12:11 | PN ---
Progress Note - Progress Note Note: CRITICAL CARE MEDICINE Date: 05/30/16 Time: 1030 SUBJECTIVE: Patient seen and examined. brother at bedside. PHYSICAL EXAM: Vital Signs: Reviewed. HR 80s-100s. bipap this am. Vol >1L at times with 16/7. 60%. Neurologic: following commands but slow. HEENT: pupils equal. Sclera anicteric. Trachea midline. ett Cardiovascular: distant, S1 S2 Respiratory: bl rhonchi Abdomen: Soft, nt. mild distention Extremities: Warm. chronic skin changes. Able to hold arms in air. LABS: Reviewed. IMAGING: Reviewed. MEDICATIONS: Reviewed. ASSESSMENT: 46 M Acute hypoxic and hypercarbic resp failure - remains vent dependent Aspiration pneumonitis - stable Acute cor pulmonale - tolerating Alcoholic cardiomyopathy Acute etoh withdrawal/DTs - coming through Hepatic encephalopahy - better Anasarca - improving Malnutition mod degree PLAN: Neurologic: recieved ativan and a little slower this am. give time and hold precedex as well. Cardiovascular: Perfusing. Vol status ok but give one dose lasix to see if we can held augment his lung function any further. bp still low end and doubt answer is simply afterload reduction as not showing signs of chf. check cxr Respiratory: FIO2 to 60% and see if we can come off bipap again to HFO2. Need pulm beatrice. Work mechanics. Gastrointestinal: still npo x ice for now until lungs have some reserve to try further po. Renal/Metabolic: stable. Infectious Disease: no abx needs despite bladder fever Hematology: Hb stable. hsq Endocrine: glu ok. Musculoskeletal: oob to chair today possibly; will eventually need pt Psych/Social: family updated Supportive and preventative care as ordered. SUP: ppi VTE prophylaxis: heparin Butcher catheter given critical illness, monitoring needs for accurate assessment of KAELYN and KDIGO criteria for critically ill patients and to avoid potential harms of urinary retention, skin breakdown/ulcers. Disposition: ICU Code Status: Full Critical Care Time: 35min Ganesh Barrett DO
--- NOTE | 2016-05-30 13:09 | PN ---
Progress Note - Progress Note Note: CRITICAL CARE MEDICINE Date: 05/30/16 Time: 1250 Tolerating vapotx post bipap this am but now with sats drop into 80s and not rebounding. Asked to cough and this remains weak but he attempted. Oral suctioning. More alert and communicating clearer. We discussed resumption of bipap and desire to use intermittent bipap with vapotherm over the day and then rest on bipap tonight again to see if his heart and lungs can equilibrate. We discussed not being re-intubated and we discussed frankly that if his lungs/ heart cannot recover this would lead to his . He acknowledged with a "no shit". Explained again the trials of niv and vapotherm and he accepts this. Given lasix already. Try a pulse of solumedrol given his wheeze now. Keep nebs. Will updated family, who pt explained they had gone for lunch. Disposition: ICU Code Status: DNR/DNI, trial NIV Critical Care Time: 15min Ganesh Barrett,
[2016-05-30] MEDS: methylPREDNISolone SOD 40 MG* 1 ML VIAL IV SCH ×2 (13:28→22:01)
[2016-05-30] MEDS ORDERED: Metoprolol Tartrate IV* 1 MG/ML 5 ML VIAL IV ONE (14:10)
[2016-05-30] MEDS: fentaNYL* 50 MCG/ML 2 ML VIAL (100 MCG VIAL) IV SLOW PU PRN (18:12)
[2016-05-30] MEDS ORDERED: Morphine INJ* 4 MG/ML 1 ML CARPUJECT IV ONE (18:51)
[2016-05-30] MEDS ORDERED: Morphine INJ* 4 MG/ML 1 ML CARPUJECT ONE (18:55)
[2016-05-30] MEDS ORDERED: Morphine PCA ADULT* 5 MG/ML 30 ML PCA SCH (19:00)
[2016-05-30] MEDS ORDERED: Morphine PCA ADULT* 5 MG/ML 30 ML ONE (19:03)
[2016-05-30 21:17] VITALS: BP 80/49
[2016-05-30] MEDS ORDERED: Morphine INJ* 10 MG/ML 1 ML CARPUJECT IV ONE (22:00)
--- NOTE | 2016-05-31 13:16 | DS ---
CRITICAL CARE MEDICINE DISCHARGE SUMMARY ADMISSION DATE: 05/15/2016 ICU ADMISSION DATE: 05/17/2016 ICU DISCHARGE DATE: 05/30/2016 PRIMARY CARE PROVIDER: Ritesh Tsai REFERRING PHYSICIAN: Faustino Perla DIAGNOSIS: 1. Acute hypoxic and hypercarbic respiratory failure. 2. Aspiration pneumonitis. 3. Acute cor-pulmonale and right ventricular failure. 4. Moderate to severe pulmonary hypertension. 5. Alcoholic cardiomyopathy. 6. Delirium tremens. 7. Hepatic encephalopathy. 8. Acute on chronic systolic heart failure. 9. Malnutition moderate degree. 10. Anemia of chronic inflammation. MEDICATIONS AT DISCHARGE: None. ALLERGIES: Latex. HOSPITAL COURSE: 46 year old male with long standing history of alcohol abuse admitted with concern for congestive heart failure and acute hypoxic respiratory failure. Admitted but poor response to therapy and admitted to intensive care unit with Delirium tremens and worsening cardiac function with right sided failures. Intubated and placed on mechanical ventilation. Treated for health care associated pneumonia. Had bladder temperature remain elevated but was able to clinically improve somewhat. He self extubated and was re- intubated. Antibiotics completed and he was able to mobilize fluid with diuretic therapy. Multiple discussions were held with family during his stay regarding his morbidity and mortality. They expressed understanding and were convinced patient would not want these terminal manager measures. He improved enough for an attempt at liberation from ventilatory. Did well at first. Regained capacity and indicated clearly never to return to intubation. He was supported with high flow therapy and bipap but to no avail. Comfort measures in place and patient passed in ICU with family present. DISPOSITION: . Ganesh Barrett DO
== END 2016-05-30 22:19 | disposition expired | DRG 194 ==
LOC: ED 14:52 → MEDTELE 17:20 → ICU 05-16 13:41 → UNDODISIN 05-30 22:19
PROVIDERS: ADMIT Hospitalist; ATTEND Internal Medicine Critical Care Medicine
PROC: 0BJ08ZZ Inspection of Tracheobronchial Tree, Via Natural or Artificial Opening Endoscopic (ICD-10-PCS; principal; 2016-05-17)
PROC: 0BH17EZ Insertion of Endotracheal Airway into Trachea, Via Natural or Artificial Opening (ICD-10-PCS; 2016-05-17)
PROC: 5A1955Z Respiratory Ventilation, Greater than 96 Consecutive Hours (ICD-10-PCS; 2016-05-17)
PROC: 5A09457 Assistance with Respiratory Ventilation, 24-96 Consecutive Hours, Continuous Positive Airway Pressure (ICD-10-PCS; 2016-05-28)
DX: I11.0 Hypertensive heart disease with heart failure (principal); J96.02 Acute respiratory failure with hypercapnia; J96.01 Acute respiratory failure with hypoxia; J69.0 Pneumonitis due to inhalation of food and vomit; F10.231 Alcohol dependence with withdrawal delirium; E44.0 Moderate protein-calorie malnutrition; I27.2 Other secondary pulmonary hypertension; E83.42 Hypomagnesemia; J98.11 Atelectasis; Z68.1 Body mass index [BMI] 19.9 or less, adult; I73.9 Peripheral vascular disease, unspecified; I42.6 Alcoholic cardiomyopathy; F17.210 Nicotine dependence, cigarettes, uncomplicated; I50.23 Acute on chronic systolic (congestive) heart failure; R79.89 Other specified abnormal findings of blood chemistry; R41.0 Disorientation, unspecified; I25.10 Atherosclerotic heart disease of native coronary artery without angina pectoris; I77.819 Aortic ectasia, unspecified site; J44.9 Chronic obstructive pulmonary disease, unspecified; R53.83 Other fatigue; I27.81 Cor pulmonale (chronic); K72.90 Hepatic failure, unspecified without coma; Z66 Do not resuscitate; E87.6 Hypokalemia; D64.89 Other specified anemias; Z86.73 Personal history of transient ischemic attack (TIA), and cerebral infarction without residual deficits; Z91.040 Latex allergy status; Z82.49 Family history of ischemic heart disease and other diseases of the circulatory system; Z83.3 Family history of diabetes mellitus
CPT/HCPCS: 31624; 36415; 36600; 71010; 71275; 76705; 80048; 80053; 80061; 80076; 80202; 80320; 81003; 81015; 82140; 82248; 82330; 82550; 82553; 82803; 83036; 83605; 83690; 83735; 83880; 84100; 84134; 84425; 84443; 84484; 85025; 85027; 85379; 85610; 85730; 86140; 87040; 87070; 87077; 87086; 87205; 87502; 92950; 93005; 93306; 94002; 94003; 94640; 94660; 94760; 96374; 99284; 99406; A9270-GY; G0480; J0132; J0330; J0610; J1120; J1644; J1650; J1940; J2060; J2250; J2270; J2543; J2704; J2920; J3010; J3370; J3411; J3475; J3480; J3490; P9045; P9047; Q9967